=== PATIENT | female | born 1980 | race Caucasian/White ===

== ENCOUNTER 2019-09-08 21:05 | Emergency (ER) | payer SELFPAY ==
[~2019-09-08] VITALS: Ht 160 cm; Wt 157.3 kg
[2019-09-08 22:20] LABS: BASOPHILS % (AUTO) 1 % (0-10); EOSINOPHILS % (AUTO) 1 % (0-10); HEMATOCRIT 41 % (35-52); HEMOGLOBIN 13.5 G/DL (11.5-16.0); LYMPHOCYTES % (AUTO) 30 % (12-44); MEAN CORPUSCULAR HEMOGLOBIN 30 PG (25-34); MEAN CORPUSCULAR HGB CONC 33 G/DL (32-36); MEAN CORPUSCULAR VOLUME 91 FL (80-99); MONOCYTES % (AUTO) 5 % (0-12); NEUTROPHILS # (AUTO) 6.8 X 10^3 (1.8-7.8); NEUTROPHILS % (AUTO) 63 % (42-75); PLATELET COUNT 283 10^3/uL (130-400); RED CELL DISTRIBUTION WIDTH 13.7 % (10.0-14.5); WHITE BLOOD COUNT 10.7 10^3/uL (4.3-11.0)
[2019-09-08 22:21] LABS: BASOPHILS # (AUTO) 0.1 10^3/uL (0.0-0.1); EOSINOPHILS # (AUTO) 0.1 10^3/uL (0.0-0.3); LYMPHOCYTES # (AUTO) 3.2 X 10^3 (1.0-4.0); MONOCYTES # (AUTO) 0.5 X 10^3 (0.0-1.0)
[2019-09-08 22:31] LABS: INR 0.9 (0.8-1.4); PROTHROMBIN TIME PATIENT 12.9 SEC (12.2-14.7)
[2019-09-08 22:36] LABS: ALANINE AMINOTRANSFERASE 14 U/L (0-55); ALBUMIN 3.6 GM/DL (3.2-4.5); ALKALINE PHOSPHATASE 104 U/L (40-136); BILIRUBIN,TOTAL 0.2 MG/DL (0.1-1.0); BUN/CREATININE RATIO 16; CALCIUM 9.4 MG/DL (8.5-10.1); CARBON DIOXIDE 25 MMOL/L (21-32); CHLORIDE 102 MMOL/L (98-107); CREATININE SERUM 0.83 MG/DL (0.60-1.30); GFR ESTIMATED > 60; GLUCOSE 90 MG/DL (70-105); POTASSIUM 3.4 MMOL/L (3.6-5.0); SODIUM 140 MMOL/L (135-145); TOTAL PROTEIN 7.4 GM/DL (6.4-8.2)
--- NOTE | 2019-09-08 22:47 | ED GU-Female ---
General Chief Complaint: TENDERIZER TENDER Stated Complaint: ABNORMAL MENSTRAL BLEEDING Nursing Triage Note: Patient states that she has been having 2 periods a month for the last 3 months. She is currently on her period and states that she has been soaking a tampon every 2 hours and she got concerned. Patient wants to get checked out. Nursing Sepsis Screen: No Definite Risk History of Present Illness Date Seen by Provider: Sep 08, 2019 Time Seen by Provider: 21:40 Initial Comments Patient is here with 3 months of metromenorrhagia having 2 periods a month and had some heavy bleeding today nothing more unusual about this and the others she doesn't know abdominal pain she is not on any hormones at this time she doesn't have a primary care physician and just arrived in town about 2 weeks ago. Since she might be a little bit dizzy at markedly obese and little understanding about what's going on. Severity/Quality: other (no pain) Modifying Factors: Worsens With Eating, Worsens With Exercise Associated Symptoms: No abdominal pain, No dysuria, No fever/chills, No lower back pain, No nausea/vomiting Allergies and Home Medications Allergies Coded Allergies: Penicillins (Verified Allergy, Unknown, 09/08/19) aspirin (Verified Allergy, Unknown, 09/08/19) bismuth subsalicylate (Verified Allergy, Unknown, 09/08/19) codeine (Verified Allergy, Unknown, 09/08/19) tramadol (Verified Allergy, Unknown, 09/08/19) Patient Home Medication List Home Medication List Reviewed: Yes Review of Systems Review of Systems Constitutional: No chills, No fever EENTM: No nose congestion, No throat pain, No throat swelling Respiratory: No cough, No wheezing Cardiovascular: No chest pain Gastrointestinal: No abdominal pain, No diarrhea, No nausea, No vomiting Genitourinary: denies dysuria, denies frequency Musculoskeletal: No joint swelling, No muscle pain Skin: No lesions, No rash Psychiatric/Neurological: Denies Headache, Denies Numbness, Denies Tingling Past Tlecrjp-Itxnjf-Fncevo Hx Past Med/Social Hx: Reviewed Nursing Past Med/Soc Hx Patient Social History Alcohol Use: Denies Use Recreational Drug Use: No Smoking Status: Current Everyday Smoker Type Used: Cigarettes Recent Foreign Travel: No Contact w/Someone Who Travel: No Recent Infectious Disease Expo: No Physical Abuse: No Sexual Abuse: No Mistreated: No Fear: No Past Medical History Surgeries: Yes Section, Tubal Ligation Respiratory: No Cardiac: No Neurological: No Genitourinary: No Gastrointestinal: No Musculoskeletal: No Endocrine: No HEENT: No Cancer: No Psychosocial: No Integumentary: No Physical Exam Vital Signs Vital Signs - First Documented 09/08/19 21:18 Temp 36.7 Pulse 81 Resp 18 B/P (MAP) 131/66 (87) Pulse Ox 98 O2 Delivery Room Air Capillary Refill : Less Than 3 Seconds Height, Weight, BMI Height: '" Weight: lbs. oz. kg; 61.00 BMI Method: General Appearance: WD/WN, no apparent distress HEENT: normal ENT inspection, TMs normal, pharynx normal Neck: non-tender, supple, normal inspection Cardiovascular: regular rate, rhythm, no murmur Respiratory: lungs clear, normal breath sounds Gastrointestinal: normal bowel sounds, non tender, soft, no organomegaly Pelvic: other (evaluable pelvic exam was discussed at this time because of her habitus and size little or no evaluators to be gained in trying to do a pelvic exam at this time she needs a sonogram she needs hormonal workup and to be seen by a physician who can follow this up.) Extremities: normal range of motion, normal inspection 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, alert, normal mood/affect, o riented x 3 Skin: normal color, warm/dry Progress/Results/Core Measures Suspected Sepsis Recent Fever Within 48 Hours: No Infection Criteria Present: None New/Unexplained Altered Menta: No Sepsis Screen: No Definite Risk SIRS Temperature: Pulse: 81 Respiratory Rate: 18 Laboratory Tests 09/08/19 22:08: White Blood Count 10.7 Blood Pressure 131 /66 Mean: 87 Laboratory Tests 09/08/19 22:08: Creatinine 0.83, INR Comment 0.9, Platelet Count 283, Total Bilirubin 0.2 Results/Orders Lab Results Laboratory Tests Test 09/08/19 22:08 Range/Units White Blood Count 10.7 4.3-11.0 10^3/uL Red Blood Count 4.51 4.35-5.85 10^6/uL Hemoglobin 13.5 11.5-16.0 G/DL Hematocrit 41 35-52 % Mean Corpuscular Volume 91 80-99 FL Mean Corpuscular Hemoglobin 30 25-34 PG Mean Corpuscular Hemoglobin Concent 33 32-36 G/DL Red Cell Distribution Width 13.7 10.0-14.5 % Platelet Count 283 130-400 10^3/uL Mean Platelet Volume 10.0 7.4-10.4 FL Neutrophils (%) (Auto) 63 42-75 % Lymphocytes (%) (Auto) 30 12-44 % Monocytes (%) (Auto) 5 0-12 % Eosinophils (%) (Auto) 1 0-10 % Basophils (%) (Auto) 1 0-10 % Neutrophils # (Auto) 6.8 1.8-7.8 X 10^3 Lymphocytes # (Auto) 3.2 1.0-4.0 X 10^3 Monocytes # (Auto) 0.5 0.0-1.0 X 10^3 Eosinophils # (Auto) 0.1 0.0-0.3 10^3/uL Basophils # (Auto) 0.1 0.0-0.1 10^3/uL Prothrombin Time 12.9 12.2-14.7 SEC INR Comment 0.9 0.8-1.4 Activated Partial Thromboplast Time 24 24-35 SEC Sodium Level 140 135-145 MMOL/L Potassium Level 3.4 L 3.6-5.0 MMOL/L Chloride Level 102 98-107 MMOL/L Carbon Dioxide Level 25 21-32 MMOL/L Anion Gap 13 5-14 MMOL/L Blood Urea Nitrogen 13 7-18 MG/DL Creatinine 0.83 0.60-1.30 MG/DL Estimat Glomerular Filtration Rate > 60 BUN/Creatinine Ratio 16 Glucose Level 90 70-105 MG/DL Calcium Level 9.4 8.5-10.1 MG/DL Corrected Calcium 9.7 8.5-10.1 MG/DL Total Bilirubin 0.2 0.1-1.0 MG/DL Aspartate Amino Transf (AST/SGOT) 14 5-34 U/L Alanine Aminotransferase (ALT/SGPT) 14 0-55 U/L Alkaline Phosphatase 104 40-136 U/L Total Protein 7.4 6.4-8.2 GM/DL Albumin 3.6 3.2-4.5 GM/DL My Orders Orders - PHAN VERDIN JR, MD Cbc With Automated Diff (09/08/19 21:37) Comprehensive Metabolic Panel (09/08/19 21:37) Protime With Inr (09/08/19 21:37) Partial Thromboplastin Time (09/08/19 21:37) Urine Bedside (09/08/19 21:47) Vital Signs/I&O 09/08/19 21:18 Temp 36.7 Pulse 81 Resp 18 B/P (MAP) 131/66 (87) Pulse Ox 98 O2 Delivery Room Air Capillary Refill : Less Than 3 Seconds Blood Pressure Mean: 87 Progress Note : Time: 22:46 Progress Note At this juncture like is minimal menorrhagia secondary to obesity and hypoestrogenism we'll give her Provera for 5 days to see if we can unload her uterus in that time will follow up with primary care physician for further evaluation including hormonal testing and ultrasound discussed with her options at this time and the fact that she will have heavy bleeding following the progesterone. Departure Impression Primary Impression: Menorrhagia Qualified Codes: N92.1 - Excessive and frequent menstruation with irregular cycle Disposition: HOME, SELF-CARE Condition: Stable Departure-Patient Inst. Referrals: NO,LOCAL PHYSICIAN (PCP/Family) Primary Care Physician Patient Instructions: Heavy Periods (DC) Scripts Medroxyprogesterone Acetate (Provera) 10 Mg Tablet 10 MG PO DAILY for 5 Days, #5 TAB Prov: PHAN VERDIN JR, MD 09/08/19 PHAN VERDIN JR, MD Sep 08, 2019 22:47
[2019-09-08] MEDS ORDERED: MEDR10TA PO (22:48)
[2019-09-08 22:58] VITALS: BP 117/73
== END 2019-09-08 22:57 | disposition home or self-care (01) ==
LOC: ER FS 21:08
DX: N92.1 Excessive and frequent menstruation with irregular cycle (principal); Z88.0 Allergy status to penicillin; Z88.5 Allergy status to narcotic agent; Z88.8 Allergy status to other drugs, medicaments and biological substances; F17.210 Nicotine dependence, cigarettes, uncomplicated; E66.9 Obesity, unspecified
CPT/HCPCS: 36415; 80053; 84703; 85025; 85610; 85730; 99282

== ENCOUNTER 2019-09-16 17:24 | Emergency (ER) | payer SELFPAY ==
[~2019-09-16] VITALS: Ht 157.8 cm; Wt 152.0 kg
[~2019-09-16 17:24] MED LIST: MEDR10TA PO
--- NOTE | 2019-09-16 17:33 | ED General ---
General Stated Complaint: FINGER PAIN/SWELLING Source of Information: Patient, RN Notes Reviewed History of Present Illness Date Seen by Provider: Sep 16, 2019 Time Seen by Provider: 17:31 Initial Comments This patient is a 38-year-old female presents to the emergency department complaining of swelling to her proximal ring finger. Patient states she's been moving furniture all day and noticed little bit of tenderness to her left ring finger proximal and some mild swelling. Does not she caught her finger on something or anything. We'll do medical evaluation treatment is needed. Allergies and Home Medications Allergies Coded Allergies: Penicillins (Verified Allergy, Unknown, 09/08/19) aspirin (Verified Allergy, Unknown, 09/08/19) bismuth subsalicylate (Verified Allergy, Unknown, 09/08/19) codeine (Verified Allergy, Unknown, 09/08/19) tramadol (Verified Allergy, Unknown, 09/08/19) Home Medications Medroxyprogesterone Acetate 10 Mg Tablet, 10 MG PO DAILY Prescribed by: PHAN VERDIN on 09/08/19 [id number] Patient Home Medication List Home Medication List Reviewed: Yes Review of Systems Review of Systems Constitutional: see HPI EENTM: No see HPI, No no symptoms reported, No ear discharge, No hearing loss, No ear pain, No blurred vision, No double vision, No eye pain, No tearing, No vision loss, No dental problems, No hoarseness, No mouth pain, No mouth swelling, No epistaxis, No nose congestion, No nose pain, No throat pain, No throat swelling, No other Respiratory: No no symptoms reported, No see HPI, No cough, No dyspnea on exe rtion, No hemoptysis, No orthopnea, No phlegm, No short of breath, No stridor, No wheezing, No other Cardiovascular: No no symptoms reported, No see HPI, No chest pain, No edema, No Hx of Intervention, No palpitations, No syncope, No vascular heart diseas, No other Gastrointestinal: No RUQ, No LUQ, No RLQ, No LLQ, No no symptoms reported, No see HPI, No abdominal pain, No constipation, No diarrhea, No dysphagia, No hematemesis, No heartburn, No jaundice, No loss of appetite, No melena, No nausea, No vomiting, No other Musculoskeletal: No no symptoms reported, No see HPI, No back pain, No gout, No joint pain, No joint swelling, No muscle pain, No muscle stiffness, No muscle cramps, No muscle twitching, No muscle weakness, No neck pain, No other Skin: No no symptoms reported; see HPI; No change in color, No change in hair/nails, No dryness, No hx of skin cancer, No lesions, No lumps, No pruritus, No rash, No other Past Njhbyht-Lrdpdv-Gzbjei Hx Patient Social History Type Used: Cigarettes Recent Foreign Travel: No Contact w/Someone Who Travel: No Past Medical History Surgeries: Yes Section, Tubal Ligation Respiratory: No Cardiac: No Neurological: No Genitourinary: No Gastrointestinal: No Musculoskeletal: No Endocrine: No HEENT: No Cancer: No Psychosocial: No Integumentary: No Physical Exam Vital Signs Capillary Refill : Height, Weight, BMI Height: '" Weight: lbs. oz. kg; 61.00 BMI Method: General Appearance: No Apparent Distress, WD/WN Respiratory: Chest Non Tender, Lungs Clear, Normal Breath Sounds, No Accessory Muscle Use, No Respiratory Distress Cardiovascular: Regular Rate, Rhythm, No Edema, No Gallop, No JVD, No Murmur, Normal Peripheral Pulses Gastrointestinal: Normal Bowel Sounds, No Organomegaly, No Pulsatile Mass, Non Tender, Soft Extremity: Normal Capillary Refill, Normal Inspection, Normal Range of Motion, Non Tender, No Calf Tenderness, No Pedal Edema Skin: Normal Color, Warm/Dry, Other (minor swelling proximal to the left fourth digit. No obvious signs of trauma for range of motion intact sensation intact.) Progress/Results/Core Measures Suspected Sepsis SIRS Temperature: Pulse: Respiratory Rate: Blood Pressure / Mean: Results/Orders Vital Signs/I&O Capillary Refill : Progress Note : Time: 17:32 Progress Note No obvious signs of trauma. Patient has full range of motion. Patient given reassurance. Patient is use ice as needed. Tylenol Motrin as needed for pain. Rest hand. Monitor closely and follow up with PCP in 2-3 days. Departure Impression Primary Impression: Finger swelling Disposition: 01 HOME, SELF-CARE Condition: Stable Departure-Patient Inst. Decision time for Depature: 17:33 Referrals: NO,LOCAL PHYSICIAN (PCP) Primary Care Physician Patient Instructions: Swelling Add. Discharge Instructions: Patient is use ice as needed. Tylenol Motrin as needed for pain. Rest hand. Monitor closely and follow up with PCP in 2-3 days. CASSIE SINGH MD Sep 16, 2019 17:33
[2019-09-16 17:44] VITALS: BP 151/93
--- OUTSIDE RECORDS SUMMARY | 2019-09-16 21:57 | XMS REPORT | Continuity of Care Document ---
Author Organization Unknown Address Unknown Phone Unavailable Allergies Active Description Code Type Severity Reaction Onset Reported/Identified Relationship to Patient Clinical Status Yes aspirin [id number] Drug Allergy Unknown N/A 09/08/2019 Yes bismuth subsalicylate [id number] Drug Allergy Unknown N/A 09/08/2019 Yes codeine [id number] Drug Allergy Unknown N/A 09/08/2019 Yes Penicillins [id number] Drug Aller gy Unknown N/A 09/08/2019 Yes tramadol [id number] Drug Allergy Unknown N/A 09/08/2019 Medications There is no data. Problems Date Dx Coded Attending Type Code Diagnosis Diagnosed By 09/09/2019 PHAN VERDIN MD Ot E66.9 OBESITY, UNSPECIFIED 09/09/2019 PHAN VERDIN MD Ot F17.210 NICOTINE DEPENDENCE, CIGARETTES, UNCOMPL 09/09/2019 PHAN VERDIN MD Ot N92.1 EXCESSIVE AND FREQUENT MENSTRUATION WITH 09/09/2019 PHAN VERDIN MD Ot Z88.0 ALLERGY STATUS TO PENICILLIN 09/09/2019 PHAN VERDIN MD Ot Z88.5 ALLERGY STATUS TO NARCOTIC AGENT STATUS 09/09/2019 PHAN VERDIN MD Ot Z88.8 ALLERGY STATUS TO OTH DRUG/MEDS/BIOL SUB Procedures There is no data. Results Test Result Range Complete blood count (CBC) with automate d white blood cell (WBC) differential - 09/08/19 22:08 Blood leukocytes automated count (number/volume) 10.7 10*3/uL 4.3-11.0 Blood erythrocytes automated count (number/volume) 4.51 10*6/uL 4.35-5.85 Venous blood hemoglobin measurement (mass/volume) 13.5 g/dL 11.5-16.0 Blood hematocrit (volume fraction) 41 % 35-52 Automated erythrocyte mean corpuscular volume 91 [ foz_us] 80-99 Automated erythrocyte mean corpuscular h emoglobin (mass per erythrocyte) 30 pg 25-34 Automated erythrocyte mean corpuscular h emoglobin concentration measurement (mass/volume) 33 g/dL 32-36 Automated erythrocyte distribution width ratio 13. 7 % 10.0- 14.5 Automated blood platelet count (count/volume) 283 10*3/uL 130-400 Automated blood platelet mean volume measurement 10.0 [foz_us] 7.4-10.4 Automated blood neutrophils/100 leukocytes 63 % 42-75 Automated blood lymphocytes/100 leukocytes 30 % 12-44 Blood monocytes/100 leukocytes 5 % 0-12 Automated blood eosinophils/100 leukocytes 1 % 0-10 Automated blood basophils/100 leukocytes 1 % 0-10 Blood neutrophils automated count (number/volume) 6.8 10*3 1.8-7.8 Blood lymphocytes automated count (number/volume) 3.2 10*3 1.0-4.0 Blood monocytes automated count (number/volume) 0. 5 10*3 0.0-1.0 Automated eosinophil count 0.1 10*3/uL 0 .0-0.3 Automated blood basophil count (count/volume) 0.1 10*3/uL 0.0-0.1 PT panel in platelet poor plasma by coag ulation assay - 09/08/19 22:08 Prothrombin time (PT) in platelet poor plasma by coagu lation assay 12.9 s 12.2-14.7 INR in platelet poor plasma or blood by coagulation as say 0.9 0.8-1.4 Activated partial thromboplastin time (a PTT) in platelet poor plasma bycoagulation assay - 09/08/19 22:08 Activated partial thromboplastin time (a PTT) in platelet poor plasma bycoagulation assay 24 s 24-35 Comprehensive metabolic panel - 09/08/19 22:08 Serum or plasma sodium measurement (moles/volume) 140 mmol/L 135-145 Serum or plasma potassium measurement (moles/volume) 3.4 mmol/L 3.6-5.0 Serum or plasma chloride measurement (moles/volume) 102 mmol/L 98-107 Carbon dioxide 25 mmol/L 21-32 Serum or plasma anion gap determination (moles/volume) 13 mmol/L 5-14 Serum or plasma urea nitrogen measurement (mass/volume ) 13 mg/dL 7-18 Serum or plasma creatinine measurement (mass/volume) 0.83 mg/dL 0.60-1.30 Serum or plasma urea nitrogen/creatinine mass ratio 16 NRG Serum or plasma creatinine measurement w ith calculation of estimated glomerular filtration rate > NRG Serum or plasma glucose measurement (mass/volume) 90 mg/dL 70-105 Serum or plasma calcium measurement (mass/volume) 9.4 mg/dL 8.5-10.1 Serum or plasma total bilirubin measurement (mass/volu me) 0.2 mg/dL 0.1-1.0 Serum or plasma alkaline phosphatase amando surement (enzymatic activity/volume) 104 U/L 40-136 Serum or plasma aspartate aminotransfera se measurement (enzymatic activity/volume) 14 U/L 5-34 Serum or plasma alanine aminotransferase measurement (enzymatic activity/volume) 14 U/L 0-55 Serum or plasma protein measurement (mass/volume) 7.4 g/dL 6.4-8.2 Serum or plasma albumin measurement (mass/volume) 3.6 g/dL 3.2-4.5 CALCIUM CORRECTED 9.7 mg/dL 8.5-10.1 Encounters ACCT No. Visit Date/Time Discharge Status Pt. Type Provider Facility Loc./Unit Complaint [id number] 09/08/2019 21:08:00 020 22:57:00 DIS Outpatient LAMBERT GAMBOA, PHAN Joiner [facility] ER FS ABNORMAL MENSTRAL BLEE DONTA
== END 2019-09-16 17:44 | disposition home or self-care (01) ==
LOC: EDUNIT# 17:24 → ER FS 17:25
DX: M79.89 Other specified soft tissue disorders (principal); Z88.0 Allergy status to penicillin; Z88.6 Allergy status to analgesic agent; Z88.5 Allergy status to narcotic agent; Z88.8 Allergy status to other drugs, medicaments and biological substances
CPT/HCPCS: 99282

== ENCOUNTER 2019-12-03 19:15 | Emergency (ER) | payer SELFPAY ==
[~2019-12-03] VITALS: Ht 160 cm; Wt 158.0 kg
--- OUTSIDE RECORDS SUMMARY | 2019-12-03 19:21 | XMS REPORT | Continuity of Care Document ---
Author Organization Unknown Address Unknown Phone Unavailable Allergies Active Description Code Type Severity Reaction Onset Reported/Identified Relationship to Patient Clinical Status Yes aspirin [id number] Drug Allergy Unknown N/A 09/08/2019 Yes bismuth subsalicylate [id number] Drug Allergy Unknown N/A 09/08/2019 Yes codeine [id number] Drug Allergy Unknown N/A 09/08/2019 Yes Penicillins [id number] Drug Aller gy Unknown N/A 09/08/2019 Yes tramadol [id number] Drug Allergy Unknown N/A 09/08/2019 Medications There is no data. Problems Date Dx Coded Attending Type Code Diagnosis Diagnosed By 09/09/2019 PHAN VERDIN MD, Ot E66.9 OBESITY, UNSPECIFIED 09/09/2019 PHAN VERDIN MD Ot F17.210 NICOTINE DEPENDENCE, CIGARETTES, UNCOMPL 09/09/2019 PHAN EVRDIN MD Ot N92.1 EXCESSIVE AND FREQUENT MENSTRUATION WITH 09/09/2019 PHAN VERDIN MD, Ot Z88.0 ALLERGY STATUS TO PENICILLIN 09/09/2019 PHAN VERDIN MD Ot Z88.5 ALLERGY STATUS TO NARCOTIC AGENT STATUS 09/09/2019 PHAN VERDIN MD Ot Z88.8 ALLERGY STATUS TO OTH DRUG/MEDS/BIOL SUB 09/18/2019 CASSIE SINGH MD Ot M79.89 OTHER SPECIFIED SOFT TISSUE DISORDERS 09/18/2019 CASSIE SINGH MD Ot Z88.0 ALLERGY STATUS TO PENICILLIN 09/18/2019 CASSIE SINGH MD Ot Z88.5 ALLERGY STATUS TO NARCOTIC AGENT STATUS 09/18/2019 CASSIE SINGH MD Ot Z88.6 ALLERGY STATUS TO ANALGESIC AGENT STATUS 09/18/2019 CASSIE SINGH MD Ot Z88.8 ALLERGY STATUS TO OTH [...] Status Pt. Type Provider Facility Loc./Unit Complaint [id number] 09/16/2019 17:25:00 17:44:00 DIS Outpatient FRANCISCO GAMBOA, CASSIE Guidry [facility] ER FS FINGER PAIN/SWELLING [id number] 09/08/2019 21:08:00 22:57:00 DIS Outpatient LAMBERT GAMBOA, PHAN Joiner [facility] ER FS ABNORMAL MENSTRAL BLEE DONTA
--- NOTE | 2019-12-03 19:37 | ED General ---
General Stated Complaint: LOWER BACK PAIN Source of Information: Patient History of Present Illness Date Seen by Provider: Dec 03, 2019 Time Seen by Provider: 19:37 Initial Comments 39-year-old female presents with right middle lower back pain. Patient reports that she bent over to set up a heavy item that had foot fallen. Reports that she "felt a pop" in her back. It is not in the midline. She denies any numbness tingling bowel or bladder issues. She denies any decreased ability to ambulate. She does have pain with movement.. Allergies and Home Medications Allergies Coded Allergies: Penicillins (Verified Allergy, Unknown, 09/08/19) aspirin (Verified Allergy, Unknown, 09/08/19) bismuth subsalicylate (Verified Allergy, Unknown, 09/08/19) codeine (Verified Allergy, Unknown, 09/08/19) tramadol (Verified Allergy, Unknown, 09/08/19) Home Medications Cyclobenzaprine HCl 10 Mg Tablet, 10 MG PO Q8H PRN for SPASMS Prescribed by: ANN GONCALVES on 12/03/192015 Medroxyprogesterone Acetate 10 Mg Tablet, 10 MG PO DAILY Prescribed by: PHAN VERDIN on 09/08/198 Naproxen 500 Mg Tablet, 500 MG PO BID Prescribed by: ANN GONCALVES on 12/03/192015 Patient Home Medication List Home Medication List Reviewed: Yes Review of Systems Review of Systems Constitutional: No chills, No fever EENTM: no symptoms reported Respiratory: no symptoms reported Cardiovascular: no symptoms reported Gastrointestinal: no symptoms reported Genitourinary: no symptoms reported Musculoskeletal: see HPI, back pain Skin: no symptoms reported Psychiatric/Neurological: No Symptoms Reported Past Hxtpbft-Nijzlc-Rptfen Hx Past Med/Social Hx: Reviewed Nursing Past Med/Soc Hx Patient Social History Type Used: Cigarettes Recent Foreign Travel: No Contact w/Someone Who Travel: No Recent Hopitalizations: No Seasonal Allergies Seasonal Allergies: No Past Medical History Surgeries: Yes Section, Tubal Ligation Respiratory: No Cardiac: No Neurological: No Genitourinary: No Gastrointestinal: No Musculoskeletal: No Endocrine: No HEENT: No Cancer: No Psychosocial: No Integumentary: No Blood Disorders: No Adverse Reaction/Blood Tranf: No Physical Exam Vital Signs Vital Signs - First Documented 12/03/19 19:49 Temp 36.6 Pulse 86 Resp 16 B/P (MAP) 131/87 (102) O2 Delivery Room Air Capillary Refill : Height, Weight, BMI Height: '" Weight: lbs. oz. kg; 61.00 BMI Method: General Appearance: No Apparent Distress, Obese (morbid) Eyes: Bilateral Eye Normal Inspection Neck: Full Range of Motion, Normal Inspection Respiratory: Lungs Clear, Normal Breath Sounds Cardiovascular: Regular Rate, Rhythm Back: No Vertebral Tenderness; No Vertebral Tenderness; Other (mild tenderness low right paraspinal and upper hip) Extremity: Normal Capillary Refill Neurologic/Psychiatric: Alert, Oriented x3, No Motor/Sensory Deficits, Normal Mood/Affect, talent partner II-XII Norm as Tested Reflexes: 2+ Knee (R), 2+ Knee (L) Skin: Normal Color, Warm/Dry Progress/Results/Core Measures Suspected Sepsis SIRS Temperature: Pulse: Respiratory Rate: Blood Pressure / Mean: Results/Orders My Orders Orders - GONCALVES,ANN L DO Orphenadrine Inj (Ed Only) (Norflex Inje (12/03/19 19:49) Ketorolac Injection (Toradol Injection) (12/03/19 19:49) Lumbar Spine 2 Or 3 View (12/03/19 19:49) Vital Signs/I&O 12/03/19 19:49 Temp 36.6 Pulse 86 Resp 16 B/P (MAP) 131/87 (102) O2 Delivery Room Air Capillary Refill : Progress Note : Time: 20:45 Progress Note Patient with no physical findings of any significant abnormality or injury. Patient is ambulating and moving without difficulty. Patient will be discharged home in stable condition. Diagnostic Imaging Diagonstic Imaging: Xray Plain Films/CT/US/NM/MRI: other Comments No acute fracture or findings Reviewed: Reviewed by Me Departure Impression Primary Impression: Strain of tendon of back Qualified Codes: S39.012A - Strain of muscle, fascia and tendon of lower back, initial encounter Additional Impression: Lumbar sprain Qualified Codes: S33.5XXA - Sprain of ligaments of lumbar spine, initial encounter Disposition: 01 HOME, SELF-CARE Condition: Stable Departure-Patient Inst. Referrals: NO,LOCAL PHYSICIAN (PCP/Family) Primary Care Physician Patient Instructions: Lumbar Muscle Strain (DC), Back Stretches on Floor, Back Muscle Strain, Back Flexion Stretching Exercises Add. Discharge Instructions: Follow-up with your primary care provider in 4-5 days if symptoms are not improving Scripts Naproxen (Naprosyn) 500 Mg Tablet 500 MG PO BID, #30 TAB 0 Refills Prov: ANN GONCALVES DO 12/03/19 Cyclobenzaprine HCl (Cyclobenzaprine HCl) 10 Mg Tablet 10 MG PO Q8H PRN for SPASMS, #15 TAB 0 Refills Prov: ANN GONCALVES DO 12/03/19 ANN GONCALVES DO Dec 03, 2019 19:37
[2019-12-03] MEDS ORDERED: ORPHENADRINE 60 MG/2 ML (NORFLEX) AMP (ED ONLY) IM STA (19:49)
[2019-12-03] MEDS ORDERED: KETOROLAC 60 MG/2 ML VIAL IM STA (19:49)
[2019-12-03] MEDS ORDERED: NAPR-1071 PO (20:16)
[2019-12-03] MEDS ORDERED: CYCL10TA9 PO (20:16)
--- NOTE | 2019-12-03 20:46 | Diagnostic Imaging Report ---
INDICATION: Low back pain EXAMINATION: Lumbar spine dated 12/03/2019 FINDINGS: 3 views of the lumbar spine Questionable pars defects at L5 with no subluxations. Vertebral body heights maintained. Intervertebral disc spaces well preserved. IMPRESSION: 1. Questionable pars defects at L5 without subluxation. Dictated by: Dictated on workstation # [id number]
[2019-12-03 20:54] VITALS: BP 127/77
== END 2019-12-03 20:54 | disposition home or self-care (01) ==
LOC: EDUNIT# 19:15 → ER FS 19:17
DX: S39.012A Strain of muscle, fascia and tendon of lower back, initial encounter (principal); S33.5XXA Sprain of ligaments of lumbar spine, initial encounter; Z88.0 Allergy status to penicillin; Z88.6 Allergy status to analgesic agent; Z88.5 Allergy status to narcotic agent; Z88.8 Allergy status to other drugs, medicaments and biological substances; X50.1XXA Overexertion from prolonged static or awkward postures, initial encounter
CPT/HCPCS: 72100

== ENCOUNTER 2020-01-15 10:53 | Emergency (ER) | payer SELFPAY ==
[~2020-01-15] VITALS: Ht 157.4 cm; Wt 158.0 kg
[~2020-01-15 10:53] MED LIST changes: +CYCL10TA9 PO; +NAPR-1071 PO
[2020-01-15 10:56] VITALS: BP 119/79
[2020-01-15 11:23] LABS: CLARITY,URINE SL CLOUDY; COLOR,URINE ORANGE; GLUCOSE, URINE (UA) TRACE (NEGATIVE); PH,URINE 5.5 (5-9); PROTEIN,URINE 1+ (NEGATIVE)
[2020-01-15 11:24] LABS: BACTERIA,URINE LARGE /HPF; BILIRUBIN,URINE NEGATIVE (NEGATIVE); KETONES,URINE NEGATIVE (NEGATIVE); LEUKOCYTE ESTERASE ,URINE NEGATIVE (NEGATIVE); NITRITE,URINE POSITIVE (NEGATIVE); RBC,URINE 0-2 /HPF; WBC,URINE 0-2 /HPF
[2020-01-15] MEDS ORDERED: FLUC100T PO (11:33)
[2020-01-15] MEDS ORDERED: SULF1TAB35 PO (11:33)
--- NOTE | 2020-01-15 11:40 | ED GU-Female ---
General Chief Complaint: - Urinary Stated Complaint: URINARY PAIN Nursing Triage Note: Patient presents to the ED with c/o burning with urination, frequency, and bladder pain. She states that her symptoms started 2 days ago and she began taking AZO yesterday evening and has had no relief. Nursing Sepsis Screen: No Definite Risk Source: patient Exam Limitations: no limitations History of Present Illness Date Seen by Provider: Jan 15, 2020 Time Seen by Provider: 11:36 Initial Comments Patient is a 39-year-old female presents with urinary frequency urgency and dysuria for the past several days. No vaginal discharge or. Patient denies fever chills, nausea vomiting and flank pain. No history of kidney stones. Previous tubal ligation. No other acute symptoms or complaints. Last menstrual period was 20 days ago. Timing/Duration: week, getting worse Severity/Quality: moderate, burning, cramping, dull Location: suprapubic Radiation: none Activities at Onset: none Prior Genitourinary Problems: similar symptoms Associated Symptoms: denies symptoms Allergies and Home Medications Allergies Coded Allergies: Penicillins (Verified Allergy, Unknown, 09/08/19) aspirin (Verified Allergy, Unknown, 09/08/19) bismuth subsalicylate (Verified Allergy, Unknown, 09/08/19) codeine (Verified Allergy, Unknown, 09/08/19) tramadol (Verified Allergy, Unknown, 09/08/19) Home Medications Cyclobenzaprine HCl 10 Mg Tablet, 10 MG PO Q8H PRN for SPASMS Prescribed by: ANN GONCALVES on 12/03/192015 Fluconazole 100 Mg Tablet, 100 MG PO DAILY PRN Prescribed by: TREVOR LUBIN on 01/15/20 1133 Medroxyprogesterone Acetate 10 Mg Tablet, 10 MG PO DAILY Prescribed by: PHAN VERDIN on 09/08/19 6738 Naproxen 500 Mg Tablet, 500 MG PO BID Prescribed by: ANN GONCALVES on 12/03/19 2016 Sulfamethoxazole/Trimethoprim 1 Each Tablet, 1 EACH PO BID Prescribed by: TREVOR LUBIN on 01/15/20 1133 Patient Home Medication List Home Medication List Reviewed: Yes Review of Systems Review of Systems Constitutional: see HPI EENTM: see HPI Cardiovascular: see HPI Gastrointestinal: no symptoms reported Genitourinary: see HPI Musculoskeletal: see HPI Skin: see HPI Psychiatric/Neurological: See HPI Endocrine: See HPI Hematologic/Lymphatic: See HPI Past Avhtocr-Lutmqu-Eannqn Hx Past Med/Social Hx: Reviewed Nursing Past Med/Soc Hx Patient Social History Alcohol Use: Denies Use Recreational Drug Use: No Smoking Status: Current Everyday Smoker Type Used: Cigarettes 2nd Hand Smoke Exposure: No Recent Foreign Travel: No Contact w/Someone Who Travel: No Recent Infectious Disease Expo: No Recent Hopitalizations: No Physical Abuse: No Sexual Abuse: No Mistreated: No Fear: No Seasonal Allergies Seasonal Allergies: No Past Medical History Surgeries: Yes Section, Tubal Ligation Respiratory: No Cardiac: No Neurological: No Genitourinary: No Gastrointestinal: No Musculoskeletal: No Endocrine: Yes Hypothyroidsim HEENT: No Cancer: No Psychosocial: Yes Anxiety, Depression Integumentary: No Blood Disorders: No Adverse Reaction/Blood Tranf: No Physical Exam Vital Signs Vital Signs - First Documented 01/15/20 10:56 Temp 35.8 Pulse 77 Resp 18 B/P (MAP) 119/79 (92) Pulse Ox 98 O2 Delivery Room Air Capillary Refill : Less Than 3 Seconds Height, Weight, BMI Height: '" Weight: lbs. oz. kg; 63.00 BMI Method: General Appearance: WD/WN, no apparent distress HEENT: PERRL/EOMI Neck: full range of motion Respiratory: lungs clear, normal breath sounds Back: no CVA tenderness Focused Exam Sepsis Stage: Ruled Out Progress/Results/Core Measures Suspected Sepsis Recent Fever Within 48 Hours: No Infection Criteria Present: Suspected New Infection New/Unexplained Altered Menta: No Sepsis Screen: No Definite Risk SIRS Temperature: Pulse: 77 Respiratory Rate: 18 Blood Pressure 119 /79 Mean: 92 Results/Orders Lab Results Laboratory Tests Test 01/15/20 10:56 Range/Units Urine Color ORANGE Urine Clarity SL CLOUDY Urine pH 5.5 5-9 Urine Specific [place] >=1.030 1.016-1.022 Urine Protein 1+ H NEGATIVE Urine Glucose (UA) TRACE NEGATIVE Urine Ketones NEGATIVE NEGATIVE Urine Nitrite POSITIVE H NEGATIVE Urine Bilirubin NEGATIVE NEGATIVE Urine Urobilinogen 2.0 < = 1.0 MG/DL Urine Leukocyte Esterase NEGATIVE NEGATIVE Urine RBC (Auto) 2+ H NEGATIVE Urine RBC 0-2 /HPF Urine WBC 0-2 /HPF Urine Squamous Epithelial Cells 10-25 H /HPF Urine Crystals NONE /LPF Urine Bacteria LARGE H /HPF Urine Casts NONE /LPF Urine Mucus MODERATE H /LPF Urine Culture Indicated YES My Orders Orders - TREVOR LUBIN DO Ua Culture If Indicated (01/15/20 11:07) Urine Culture (01/15/20 10:56) Vital Signs/I&O 01/15/20 10:56 Temp 35.8 Pulse 77 Resp 18 B/P (MAP) 119/79 (92) Pulse Ox 98 O2 Delivery Room Air Capillary Refill : Less Than 3 Seconds Blood Pressure Mean: 92 Departure Communication (Admissions) Minimally symptomatic. Symptoms improved with treatment. Impression Primary Impression: Urinary tract infection Disposition: HOME, SELF-CARE Condition: Stable Departure-Patient Inst. Patient Instructions: Urinary Tract Infection, Adult (DC) Add. Discharge Instructions: Please increase fluid intake and take medications as directed. Follow up with your PCP in the next 5-7 days. Return to the ED if new or worsening symptoms. All discharge instructions reviewed with patient and/or family. Voiced understanding. Scripts Fluconazole (Diflucan) 100 Mg Tablet 100 MG PO DAILY PRN, #2 TAB Prov: TREVOR LUBIN DO 01/15/20 Sulfamethoxazole/Trimethoprim (Bactrim Ds Tablet) 1 Each Tablet 1 EACH PO BID, #14 TAB Prov: TREVOR LUBIN DO 01/15/20 TREVOR LUBIN DO Jan 15, 2020 11:40
--- OUTSIDE RECORDS SUMMARY | 2020-01-15 17:50 | XMS REPORT | Continuity of Care Document ---
Author Organization Unknown Address Unknown Phone Unavailable Allergies Active Description Code Type Severity Reaction Onset Reported/Identified Relationship to Patient Clinical Status Yes aspirin [id number] Drug Allergy Unknown N/A 09/08/2019 Yes bismuth subsalicylate [id number] Drug Allergy Unknown N/A 09/08/2019 Yes codeine [id number] Drug Allergy Unknown N/A 09/08/2019 Yes Penicillins [id number] Drug Aller gy Unknown N/A 09/08/2019 Yes tramadol [id number] Drug Allergy Unknown N/A 09/08/2019 Medications There [...] Z88.8 ALLERGY STATUS TO OTH DRUG/MEDS/BIOL SUB 12/05/2019 GONCALVES DO, ANN L Ot M54.5 LOW BACK PAIN 12/05/2019 GONCALVES DO, ANN L Ot S33.5XXA SPRAIN OF LIGAMENTS OF LUMBAR SPINE, INI 12/05/2019 GONCALVES DO, ANN L Ot S39.012A STRAIN OF MUSCLE, FASCIA AND TENDON OF L 12/05/2019 GONCALVES DO, ANN L Ot X50.1XXA OVEREXERTION FROM PROLONGED STATIC OR AW 12/05/2019 GONCALVES DO, ANN L Ot Z88.0 ALLERGY STATUS TO PENICILLIN 12/05/2019 GONCALVES DO, ANN L Ot Z88.5 ALLERGY STATUS TO NARCOTIC AGENT STATUS 12/05/2019 GONCALVES DO, ANN L Ot Z88.6 ALLERGY STATUS TO ANALGESIC AGENT STATUS 12/05/2019 GONCALVES DO, ANN L Ot Z88.8 ALLERGY STATUS TO OTH DRUG/MEDS/BIOL SUB 12/09/2019 GONCALVES DO, ANN L Ot M54.5 LOW BACK PAIN 12/09/2019 GONCALVES DO, ANN L Ot S33.5XXA SPRAIN OF LIGAMENTS OF LUMBAR SPINE, INI 12/09/2019 GONCALVES DO, ANN L Ot S39.012A STRAIN OF MUSCLE, FASCIA AND TENDON OF L 12/09/2019 GONCALVES DO, ANN L Ot X50.1XXA OVEREXERTION FROM PROLONGED STATIC OR AW 12/09/2019 GONCALVES DO, ANN L Ot Z88.0 ALLERGY STATUS TO PENICILLIN 12/09/2019 GONCALVES DO, ANN L Ot Z88.5 ALLERGY STATUS TO NARCOTIC AGENT STATUS 12/09/2019 GONCALVES DO, ANN L Ot Z88.6 ALLERGY STATUS TO ANALGESIC AGENT STATUS 12/09/2019 GONCALVES DO, ANN L Ot Z88.8 ALLERGY STATUS TO OTH DRUG/MEDS/BIOL [...] g/dL 3.2-4.5 CALCIUM CORRECTED 9.7 mg/dL 8.5-10.1 SUREPATH PAP AND HPV mRNA E6/E7 - 12:00 CLINICAL INFORMATION: NR LMP: NRG PREV. PAP: NRG PREV. BX: NRG SOURCE: NR STATEMENT OF ADEQUACY: NR INTERPRETATION/RESULT: [facility] VP PLATFORMS: NR HPV mRNA E6/E7, SUREPATH VIAL Not Detected NOT DETECTED INFECTION: NR COMMENT NR Complete urinalysis with reflex to cultu re - 01/15/20 10:56 Urine color determination ORANGE NRG Urine clarity determination SL CLOUDY N RG Urine pH measurement by test strip 5.5 5-9 Specific gravity of urine by test strip >= 1.016-1.022 Urine protein assay by test strip, semi-quantitative 1+ NEGATIVE Urine glucose detection by automated test strip TR JUAN NEGATIVE Erythrocytes detection in urine sediment by light micr oscopy 2+ NEGATIVE Urine ketones detection by automated test strip NE GATIVE NEGATIVE Urine nitrite detection by test strip POSITIVE NEGATIVE Urine total bilirubin detection by test strip NEGA TIVE NEGATIVE Urine urobilinogen measurement by automated test strip (mass/volume) 2.0 mg/dL < = 1.0 Urine leukocyte esterase detection by dipstick NEG ATIVE NEGATIVE Automated urine sediment erythrocyte cou nt by microscopy (number/high power field) [HPF] NR Automated urine sediment leukocyte count by microscopy (number/high power field) [HPF] NRG Bacteria detection in urine sediment by light microsco py LARGE NRG Squamous epithelial cells detection in u rine sediment by light microscopy 10-25 NRG Crystals detection in urine sediment by light microsco py NONE NRG Casts detection in urine sediment by light microscopy NONE NRG Mucus detection in urine sediment by light microscopy MODERATE NRG Complete urinalysis with reflex to culture YES NRG Encounters ACCT No. Visit Date/Time Discharge Status Pt. Type Provider Facility Loc./Unit Complaint [id number] 12/15/2019 13:40:00 12/15/2019 23:59: 59 CLS Outpatient LEO JOSE [facility] [id number] 12/11/2019 10:40:00 Document Registration [id number] 12/03/2019 19:17:00 20:54:00 DIS Outpatient ANN GONCALVES DO [facility] ER FS LOWER BACK PAIN [id number] 09/16/2019 17:25:00 17:44:00 DIS Outpatient CASSIE SINGH MD [facility] ER FS FINGER PAIN/SWELLING [id number] 09/08/2019 21:08:00 22:57:00 DIS Outpatient PHAN VERDIN MD [facility] ER FS ABNORMAL MENSTRAL BLEE DING [id number] 01/15/2020 11:25:00 Document Registration
== END 2020-01-15 11:38 | disposition home or self-care (01) ==
LOC: EDUNIT# 10:53 → ER FS 10:55
DX: N39.0 Urinary tract infection, site not specified (principal); F17.210 Nicotine dependence, cigarettes, uncomplicated; Z88.0 Allergy status to penicillin; Z88.5 Allergy status to narcotic agent; Z88.6 Allergy status to analgesic agent; Z88.8 Allergy status to other drugs, medicaments and biological substances; Z98.51 Tubal ligation status
CPT/HCPCS: 81000; 87077; 87088; 87186; 99282

== ENCOUNTER 2020-02-29 16:39 | Emergency (ER) | payer MEDICAID, OTHER ==
[~2020-02-29] VITALS: Ht 160 cm; Wt 157.5 kg
[~2020-02-29 16:39] MED LIST changes: +FLUC100T PO; +SULF1TAB35 PO
[2020-02-29] MEDS ORDERED: NS IV 1000 ML 1,000 ML IV STA (17:10)
[2020-02-29] MEDS ORDERED: ONDANSETRON 4 MG/2 ML (SDV) Z0FRAN IVP STA (17:10)
--- NOTE | 2020-02-29 17:10 | ED General ---
General Chief Complaint: Abdominal/GI Problems Stated Complaint: WEAKNESS,NAUSEA Source of Information: Patient History of Present Illness Date Seen by Provider: Feb 29, 2020 Time Seen by Provider: 16:44 Initial Comments 39-year-old female presenting with complaints of generalized weakness, nausea. She states that since 9 AM or so she has been having a feeling of generalized weakness and fatigue. She also has chronic nausea but felt like it was worse today. Her Zofran that she has at home was not helping today. She also has a right-sided headache that has been present for the last 2 days. She denies any change in her vision or trouble with her sinuses. She has no difficulty swallowing. She has no shortness of breath or cough. She states that she has some chronic diarrhea. She is currently on her menstrual cycle and has some abdominal cramping from that but states that is normal for her. She denies any fever or chills. Allergies and Home Medications Allergies Coded Allergies: Penicillins (Verified Allergy, Unknown, 09/08/19) aspirin (Verified Allergy, Unknown, 09/08/19) bismuth subsalicylate (Verified Allergy, Unknown, 09/08/19) codeine (Verified Allergy, Unknown, 09/08/19) tramadol (Verified Allergy, Unknown, 09/08/19) Home Medications Cyclobenzaprine HCl 10 Mg Tablet, 10 MG PO Q8H PRN for SPASMS Prescribed by: ANN GONCALVES on 12/03/192015 Fluconazole 100 Mg Tablet, 100 MG PO DAILY PRN Prescribed by: VITALY LOMELI on 02/29/20 174 Medroxyprogesterone Acetate 10 Mg Tablet, 10 MG PO DAILY Prescribed by: PHAN VERDIN on 09/08/198 Naproxen 500 Mg Tablet, 500 MG PO BID Prescribed by: ANN GONCALVES on 12/03/192015 Sulfamethoxazole/Trimethoprim 1 Each Tablet, 1 EACH PO BID Prescribed by: VITALY LOMELI on 02/29/20 174 Patient Home Medication List Home Medication List Reviewed: Yes Review of Systems Review of Systems Constitutional: No chills, No fever; malaise, weakness (generalized) EENTM: see HPI Respiratory: no symptoms reported Cardiovascular: no symptoms reported Gastrointestinal: see HPI Genitourinary: see HPI Musculoskeletal: no symptoms reported Skin: no symptoms reported Psychiatric/Neurological: See HPI Hematologic/Lymphatic: No Symptoms Reported Past Eknlenz-Rivbrt-Bgvszs Hx Past Med/Social Hx: Reviewed Nursing Past Med/Soc Hx Patient Social History Alcohol Use: Denies Use Recreational Drug Use: No Smoking Status: Current Everyday Smoker Type Used: Cigarettes 2nd Hand Smoke Exposure: No Recent Hopitalizations: No Seasonal Allergies Seasonal Allergies: No Past Medical History Surgeries: Yes Section, Tubal Ligation Respiratory: No Cardiac: No Neurological: No Genitourinary: No Gastrointestinal: No Musculoskeletal: No Endocrine: Yes Hypothyroidsim HEENT: No Cancer: No Psychosocial: Yes Anxiety, Depression Integumentary: No Blood Disorders: No Adverse Reaction/Blood Tranf: No Physical Exam Vital Signs Vital Signs - First Documented 02/29/20 16:45 Temp 36.8 Pulse 95 Resp 20 B/P (MAP) 137/92 (107) Pulse Ox 96 O2 Delivery Room Air Capillary Refill : Height, Weight, BMI Height: '" Weight: lbs. oz. 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 Norm as Tested Skin: Normal Color, Warm/Dry Progress/Results/Core Measures Suspected Sepsis SIRS Temperature: Pulse: Respiratory Rate: Laboratory Tests 02/29/20 17:25: White Blood Count 13.7H Blood Pressure / Mean: Laboratory Tests 02/29/20 17:25: Platelet Count 278 02/29/20 17:35: Creatinine 0.73, Total Bilirubin < 0.2 Results/Orders Lab Results Laboratory Tests Test 02/29/20 16:45 02/29/20 17:25 02/29/20 17:35 Range/Units Urine Color YELLOW Urine Clarity CLOUDY Urine pH 6.0 5-9 Urine Specific [place] >=1.030 1.016-1.022 Urine Protein TRACE H NEGATIVE Urine Glucose (UA) NEGATIVE NEGATIVE Urine Ketones NEGATIVE NEGATIVE Urine Nitrite POSITIVE H NEGATIVE Urine Bilirubin NEGATIVE NEGATIVE Urine Urobilinogen 0.2 < = 1.0 MG/DL Urine Leukocyte Esterase NEGATIVE NEGATIVE Urine RBC (Auto) 2+ H NEGATIVE Urine RBC 10-25 H /HPF Urine WBC RARE /HPF Urine Squamous Epithelial Cells 0-2 /HPF Urine Crystals NONE /LPF Urine Bacteria LARGE H /HPF Urine Casts PRESENT /LPF Urine Granular Casts 0-2 H /LPF Urine Mucus SMALL H /LPF Urine Culture Indicated YES Urine Opiates Screen NEGATIVE NEGATIVE Urine Oxycodone Screen NEGATIVE NEGATIVE Urine Methadone Screen NEGATIVE NEGATIVE Urine Propoxyphene Screen NEGATIVE NEGATIVE Urine Barbiturates Screen NEGATIVE NEGATIVE Ur Tricyclic Antidepressants Screen NEGATIVE NEGATIVE Urine Phencyclidine Screen NEGATIVE NEGATIVE Urine Amphetamines Screen NEGATIVE NEGATIVE Urine Methamphetamines Screen NEGATIVE NEGATIVE Urine Benzodiazepines Screen NEGATIVE NEGATIVE Urine Cocaine Screen NEGATIVE NEGATIVE Urine Cannabinoids Screen NEGATIVE NEGATIVE White Blood Count 13.7 H 4.3-11.0 10^3/uL Red Blood Count 4.57 4.35-5.85 10^6/uL Hemoglobin 13.8 11.5-16.0 G/DL Hematocrit 43 35-52 % Mean Corpuscular Volume 94 80-99 FL Mean Corpuscular Hemoglobin 30 25-34 PG Mean Corpuscular Hemoglobin Concent 32 32-36 G/DL Red Cell Distribution Width 13.6 10.0-14.5 % Platelet Count 278 130-400 10^3/uL Mean Platelet Volume 10.5 H 7.4-10.4 FL Neutrophils (%) (Auto) 75 42-75 % Lymphocytes (%) (Auto) 18 12-44 % Monocytes (%) (Auto) 5 0-12 % Eosinophils (%) (Auto) 1 0-10 % Basophils (%) (Auto) 0 0-10 % Neutrophils # (Auto) 10.3 H 1.8-7.8 X 10^3 Lymphocytes # (Auto) 2.5 1.0-4.0 X 10^3 Monocytes # (Auto) 0.7 0.0-1.0 X 10^3 Eosinophils # (Auto) 0.1 0.0-0.3 10^3/uL Basophils # (Auto) 0.1 0.0-0.1 10^3/uL Sodium Level 139 135-145 MMOL/L Potassium Level 4.0 3.6-5.0 MMOL/L Chloride Level 104 98-107 MMOL/L Carbon Dioxide Level 24 21-32 MMOL/L Anion Gap 11 5-14 MMOL/L Blood Urea Nitrogen 15 7-18 MG/DL Creatinine 0.73 0.60-1.30 MG/DL Estimat Glomerular Filtration Rate > 60 BUN/Creatinine Ratio 21 Glucose Level 102 70-105 MG/DL Calcium Level 9.5 8.5-10.1 MG/DL Corrected Calcium 9.7 8.5-10.1 MG/DL Total Bilirubin < 0.2 0.1-1.0 MG/DL Aspartate Amino Transf (AST/SGOT) 16 5-34 U/L Alanine Aminotransferase (ALT/SGPT) 19 0-55 U/L Alkaline Phosphatase 105 40-136 U/L Total Protein 7.1 6.4-8.2 GM/DL Albumin 3.7 3.2-4.5 GM/DL Lipase 24 8-78 U/L My Orders Orders - VITALY LOMELI MD Ua Culture If Indicated (02/29/20 16:52) Urine Bedside (02/29/20 16:52) Drug Screen Stat (Urine) (02/29/20 16:53) Comprehensive Metabolic Panel (02/29/20 17:10) Lipase (02/29/20 17:10) Ed Iv/Invasive Line Start (02/29/20 17:10) Cbc With Automated Diff (02/29/20 17:10) Ns Iv 1000 Ml (Sodium Chloride 0.9%) (02/29/20 17:10) Ondansetron Injection (Zofran Injectio (02/29/20 17:10) Urine Culture (02/29/20 16:45) Sulfamethoxazole/Trimet Ds Tab (Bactrim (02/29/20 17:50) Vital Signs/I&O 02/29/20 02/29/20 16:45 18:37 Temp 36.8 Pulse 95 78 Resp 20 16 B/P (MAP) 137/92 (107) 116/59 Pulse Ox 96 97 O2 Delivery Room Air Room Air Capillary Refill : Progress Note #1: Progress Note Obtain basic labs with urinalysis Progress Note #2: Progress Note Urine shows signs of infection with nitrites and bacteria. It's also concentrat ed with a greater than 1.030 specific gravity. WBC slightly elevated to 13.7. Give IVF with Zofran 8 mg IV. Last Urine culture shows sensitive E. Coli to all antibiotics. Progress Note #3: Progress Note chemistry is normal as well without acute significant abnormality. Treat with bactrim DS as she responded to that with last UTI. Renew script for Bactrim and Diflucan at pharmacy. Departure Impression Primary Impression: Cystitis with hematuria Additional Impressions: Dehydration Generalized weakness Right-sided headache Disposition: HOME, SELF-CARE Condition: Improved Departure-Patient Inst. Decision time for Depature: 18:10 Referrals: [facility] (PCP) Primary Care Physician LEO JOSE APRN (Family) Primary Care Physician Patient Instructions: Dehydration, Adult (DC), Urinary Tract Infection, Adult (DC) Add. Discharge Instructions: Try to continue to stay well hydrated Take the full course of antibiotics. Follow up with clinic for continued concerns All discharge instructions reviewed with patient and/or family. Voiced understanding. Scripts Fluconazole (Diflucan) 100 Mg Tablet 100 MG PO DAILY PRN, #2 TAB Prov: VITALY LOMELI MD 02/29/20 Sulfamethoxazole/Trimethoprim (Bactrim Ds Tablet) 1 Each Tablet 1 EACH PO BID, #14 TAB Prov: VITALY LOMELI MD 02/29/20 VITALY LOMELI MD Feb 29, 2020 17:10
[2020-02-29 17:18] LABS: BILIRUBIN,URINE NEGATIVE (NEGATIVE); CLARITY,URINE CLOUDY; COLOR,URINE YELLOW; GLUCOSE, URINE (UA) NEGATIVE (NEGATIVE); KETONES,URINE NEGATIVE (NEGATIVE); LEUKOCYTE ESTERASE ,URINE NEGATIVE (NEGATIVE); NITRITE,URINE POSITIVE (NEGATIVE); PROTEIN,URINE TRACE (NEGATIVE)
[2020-02-29 17:19] LABS: BACTERIA,URINE LARGE /HPF; GRANULAR CASTS,URINE 0-2 /LPF; SQUAMOUS EPITHELIAL CELL,UR 0-2 /HPF; WBC,URINE RARE /HPF
[2020-02-29 17:22] LABS: AMPHETAMINE SCREEN, URINE NEGATIVE (NEGATIVE); BARBITURATE SCREEN URINE NEGATIVE (NEGATIVE); BENZODIAZEPINES SCREEN URINE NEGATIVE (NEGATIVE); CANNABINOID SCREEN, URINE NEGATIVE (NEGATIVE); COCAINE SCREEN URINE NEGATIVE (NEGATIVE); METHADONE STAT NEGATIVE (NEGATIVE); METHAMPHETAMINE SCREEN URINE S NEGATIVE (NEGATIVE); OPIATE SCREEN URINE NEGATIVE (NEGATIVE); OXYCODONE STAT NEGATIVE (NEGATIVE); PROPOXYPHENE STAT NEGATIVE (NEGATIVE); TRICYCLIC ANTIDEPRESSANTS SCRE NEGATIVE (NEGATIVE)
[2020-02-29 17:31] LABS: BASOPHILS % (AUTO) 0 % (0-10); EOSINOPHILS % (AUTO) 1 % (0-10); HEMATOCRIT 43 % (35-52); HEMOGLOBIN 13.8 G/DL (11.5-16.0); LYMPHOCYTES % (AUTO) 18 % (12-44); MEAN CORPUSCULAR HEMOGLOBIN 30 PG (25-34); MEAN CORPUSCULAR HGB CONC 32 G/DL (32-36); MEAN CORPUSCULAR VOLUME 94 FL (80-99); MEAN PLATELET VOLUME 10.5 FL (7.4-10.4); MONOCYTES % (AUTO) 5 % (0-12); NEUTROPHILS % (AUTO) 75 % (42-75); PLATELET COUNT 278 10^3/uL (130-400); WHITE BLOOD COUNT 13.7 10^3/uL (4.3-11.0)
[2020-02-29 17:32] LABS: BASOPHILS # (AUTO) 0.1 10^3/uL (0.0-0.1); EOSINOPHILS # (AUTO) 0.1 10^3/uL (0.0-0.3); LYMPHOCYTES # (AUTO) 2.5 X 10^3 (1.0-4.0); MONOCYTES # (AUTO) 0.7 X 10^3 (0.0-1.0); NEUTROPHILS # (AUTO) 10.3 X 10^3 (1.8-7.8)
[2020-02-29] MEDS ORDERED: FLUC100T PO (17:49)
[2020-02-29] MEDS ORDERED: SULF1TAB35 PO (17:49)
[2020-02-29] MEDS ORDERED: TRIM/SULFAMETH 160/800 (SEPTRA DS) TAB PO STA (17:50)
[2020-02-29 18:03] LABS: CARBON DIOXIDE 24 MMOL/L (21-32); CHLORIDE 104 MMOL/L (98-107); SODIUM 139 MMOL/L (135-145)
[2020-02-29 18:04] LABS: ALANINE AMINOTRANSFERASE 19 U/L (0-55); ALBUMIN 3.7 GM/DL (3.2-4.5); ALKALINE PHOSPHATASE 105 U/L (40-136); BILIRUBIN,TOTAL < 0.2 MG/DL (0.1-1.0); BUN/CREATININE RATIO 21; CALCIUM 9.5 MG/DL (8.5-10.1); CREATININE SERUM 0.73 MG/DL (0.60-1.30); GFR ESTIMATED > 60; GLUCOSE 102 MG/DL (70-105); LIPASE 24 U/L (8-78); TOTAL PROTEIN 7.1 GM/DL (6.4-8.2)
[2020-02-29 18:37] VITALS: BP 116/59
== END 2020-02-29 18:39 | disposition home or self-care (01) ==
LOC: EDUNIT# 16:39 → ER FS 16:40
DX: N30.91 Cystitis, unspecified with hematuria (principal); E86.0 Dehydration; R53.1 Weakness; R51 Headache; E66.9 Obesity, unspecified; F17.210 Nicotine dependence, cigarettes, uncomplicated; Z68.44 Body mass index [BMI] 60.0-69.9, adult; Z88.0 Allergy status to penicillin; Z88.5 Allergy status to narcotic agent; Z88.6 Allergy status to analgesic agent; Z88.8 Allergy status to other drugs, medicaments and biological substances
CPT/HCPCS: 36415; 80053; 80306; 81000; 83690; 84703; 85025; 87088

== ENCOUNTER 2020-11-19 18:10 | Emergency (ER) | payer MEDICAID ==
--- NOTE | 2020-11-19 18:20 | ED GI ---
General Chief Complaint: Abdominal/GI Problems Stated Complaint: NAUSEA,WEAKNESS,FATIGUE History of Present Illness Date Seen by Provider: Nov 19, 2020 Time Seen by Provider: 18:15 Initial Comments 40-year-old female presents with some generalized weakness, nausea, fatigue, increased thirst. Patient reports that the symptoms have been going on for about 2 days. She feels like she is thirsty all the time, feels like maybe she is dehydrated. Patient has not been out in the heat. Patient has an 8-year-old who is got a little bit of nausea diarrhea. Otherwise she denies any cough, shortness of breath, chest pain, diarrhea, vomiting or other systemic complaints. Allergies and Home Medications Allergies Coded Allergies: Penicillins (Verified Allergy, Unknown, 09/08/19) aspirin (Verified Allergy, Unknown, 09/08/19) bismuth subsalicylate (Verified Allergy, Unknown, 09/08/19) codeine (Verified Allergy, Unknown, 09/08/19) tramadol (Verified Allergy, Unknown, 09/08/19) Home Medications Cyclobenzaprine HCl 10 Mg Tablet, 10 MG PO Q8H PRN for SPASMS Prescribed by: ANN GONCALVES on 12/03/192015 Fluconazole 100 Mg Tablet, 100 MG PO DAILY PRN Prescribed by: VITALY LOMELI on 02/29/201748 Medroxyprogesterone Acetate 10 Mg Tablet, 10 MG PO DAILY Prescribed by: PHAN VERDIN on 09/08/192247 Naproxen 500 Mg Tablet, 500 MG PO BID Prescribed by: ANN GONCAVLES on 12/03/192015 Sulfamethoxazole/Trimethoprim 1 Each Tablet, 1 EACH PO BID Prescribed by: VITALY LOMELI on 02/29/20 174 Patient Home Medication List Home Medication List Reviewed: Yes Review of Systems Review of Systems Constitutional: No chills; malaise, weakness Respiratory: No Symptoms Reported, Cough; Denies Shortness of Air, Denies SOA at Rest, Denies Wheezing Cardiovascular: Denies Chest Pain, Denies Irregular Heart Rate Gastrointestinal: Denies Abdominal Pain, Denies Diarrhea; Nausea; Denies Vomiting Genitourinary: No Symptoms Reported Musculoskeletal: no symptoms reported Skin: no symptoms reported Psychiatric/Neurological: No Symptoms Reported Endocrine: No Symptoms Reported Past Xbwimww-Sjhyzy-Tirlan Hx Past Med/Social Hx: Reviewed Nursing Past Med/Soc Hx Patient Social History Type Used: Cigarettes 2nd Hand Smoke Exposure: No Recent Hopitalizations: No Seasonal Allergies Seasonal Allergies: No Past Medical History Surgeries: Yes Section, Tubal Ligation Respiratory: No Cardiac: No 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 oz. kg; 61.00 BMI Method: General Appearance: no apparent distress, obese (Morbid) Respiratory: lungs clear, normal breath sounds Cardiovascular: normal peripheral pulses, regular rate, rhythm Gastrointestinal: non tender, soft Extremities: normal range of motion Neurologic/Psychiatric: alert, normal mood/affect, oriented x 3 Skin: normal color, warm/dry Progress/Results/Core Measures Results/Orders Lab Results Laboratory Tests Test 11/19/20 18:38 11/19/20 18:45 Range/Units White Blood Count 14.0 H 4.3-11.0 10^3/uL Red Blood Count 4.89 4.35-5.85 10^6/uL Hemoglobin 14.6 11.5-16.0 G/DL Hematocrit 46 35-52 % Mean Corpuscular Volume 93 80-99 FL Mean Corpuscular Hemoglobin 30 25-34 PG Mean Corpuscular Hemoglobin Concent 32 32-36 G/DL Red Cell Distribution Width 14.3 10.0-14.5 % Platelet Count 281 130-400 10^3/uL Mean Platelet Volume 10.4 7.4-10.4 FL Immature Granulocyte % (Auto) 0 % Neutrophils (%) (Auto) 70 42-75 % Lymphocytes (%) (Auto) 23 12-44 % Monocytes (%) (Auto) 5 0-12 % Eosinophils (%) (Auto) 1 0-10 % Basophils (%) (Auto) 1 0-10 % Neutrophils # (Auto) 9.7 H 1.8-7.8 X 10^3 Lymphocytes # (Auto) 3.3 1.0-4.0 X 10^3 Monocytes # (Auto) 0.7 0.0-1.0 X 10^3 Eosinophils # (Auto) 0.2 0.0-0.3 10^3/uL Basophils # (Auto) 0.1 0.0-0.1 10^3/uL Immature Granulocyte # (Auto) 0.1 0.0-0.1 10^3/uL Sodium Level 135 135-145 MMOL/L Potassium Level 4.2 3.6-5.0 MMOL/L Chloride Level 103 98-107 MMOL/L Carbon Dioxide Level 21 21-32 MMOL/L Anion Gap 11 5-14 MMOL/L Blood Urea Nitrogen 16 7-18 MG/DL Creatinine 0.77 0.60-1.30 MG/DL Estimat Glomerular Filtration Rate > 60 BUN/Creatinine Ratio 21 Glucose Level 92 70-105 MG/DL Calcium Level 9.3 8.5-10.1 MG/DL Corrected Calcium 9.7 8.5-10.1 MG/DL Total Bilirubin 0.2 0.1-1.0 MG/DL Aspartate Amino Transf (AST/SGOT) 15 5-34 U/L Alanine Aminotransferase (ALT/SGPT) 16 0-55 U/L Alkaline Phosphatase 116 40-136 U/L Total Protein 7.4 6.4-8.2 GM/DL Albumin 3.5 3.2-4.5 GM/DL Urine Color YELLOW Urine Clarity CLEAR Urine pH 6.0 5-9 Urine Specific [place] >=1.030 1.016-1.022 Urine Protein NEGATIVE NEGATIVE Urine Glucose (UA) NEGATIVE NEGATIVE Urine Ketones NEGATIVE NEGATIVE Urine Nitrite NEGATIVE NEGATIVE Urine Bilirubin NEGATIVE NEGATIVE Urine Urobilinogen 0.2 < = 1.0 MG/DL Urine Leukocyte Esterase NEGATIVE NEGATIVE Urine RBC (Auto) 2+ H NEGATIVE Urine RBC 2-5 H /HPF Urine WBC 0-2 /HPF Urine Squamous Epithelial Cells 10-25 H /HPF Urine Crystals NONE /LPF Urine Bacteria FEW H /HPF Urine Casts NONE /LPF Urine Mucus MODERATE H /LPF Urine Other NO /HPF My Orders Orders - GONCALVES,ANN L DO Cbc With Automated Diff (11/19/20 18:21) Comprehensive Metabolic Panel (11/19/20 18:21) Lipase (11/19/20 18:21) Ua Culture If Indicated (11/19/20 18:21) Hemoglobin A1c (11/19/20 18:22) Manual Differential (11/19/20 18:38) Vital Signs/I&O 11/19/20 18:50 Temp 36.1 Pulse 92 Resp 20 B/P (MAP) 112/59 (76) Pulse Ox 95 Progress Progress Note : Progress Note Patient's physical exam shows no acute findings. Patient has a slightly elevated white count otherwise no findings. Her child also has some nausea and diarrhea. Discussed with her that possibly is just a viral illness and stable habit. I will prescribe her some Zofran. She should drink plenty of fluids and is discharged home in stable condition. Departure Impression Primary Impression: Nausea alone Additional Impression: Gastroenteritis Disposition: 01 HOME, SELF-CARE Condition: Stable Departure-Patient Inst. Referrals: [facility] (PCP) Primary Care Physician LEO JOSE APRN (Family) Primary Care Physician Patient Instructions: Nausea and Vomiting, Adult (DC) Scripts Ondansetron (Ondansetron Odt) 4 Mg Tab.rapdis 4 MG PO Q6H PRN for NAUSEA/VOMITING, #20 TAB 0 Refills Prov: ANN GONCALVES DO 11/19/20 ANN GONCALVES DO Nov 19, 2020 18:20
[2020-11-19 18:48] LABS: HEMATOCRIT 46 % (35-52); HEMOGLOBIN 14.6 G/DL (11.5-16.0); MEAN CORPUSCULAR HEMOGLOBIN 30 PG (25-34); MEAN CORPUSCULAR HGB CONC 32 G/DL (32-36); MEAN CORPUSCULAR VOLUME 93 FL (80-99); MEAN PLATELET VOLUME 10.4 FL (7.4-10.4); PLATELET COUNT 281 10^3/uL (130-400)
[2020-11-19 18:49] LABS: BASOPHILS # (AUTO) 0.1 10^3/uL (0.0-0.1); BASOPHILS % (AUTO) 1 % (0-10); EOSINOPHILS # (AUTO) 0.2 10^3/uL (0.0-0.3); EOSINOPHILS % (AUTO) 1 % (0-10); LYMPHOCYTES # (AUTO) 3.3 X 10^3 (1.0-4.0); LYMPHOCYTES % (AUTO) 23 % (12-44); MONOCYTES # (AUTO) 0.7 X 10^3 (0.0-1.0); MONOCYTES % (AUTO) 5 % (0-12); NEUTROPHILS # (AUTO) 9.7 X 10^3 (1.8-7.8); NEUTROPHILS % (AUTO) 70 % (42-75)
[2020-11-19 19:06] LABS: ALANINE AMINOTRANSFERASE 16 U/L (0-55); ALBUMIN 3.5 GM/DL (3.2-4.5); ALKALINE PHOSPHATASE 116 U/L (40-136); BILIRUBIN,TOTAL 0.2 MG/DL (0.1-1.0); BUN/CREATININE RATIO 21; CALCIUM 9.3 MG/DL (8.5-10.1); CARBON DIOXIDE 21 MMOL/L (21-32); CHLORIDE 103 MMOL/L (98-107); CREATININE SERUM 0.77 MG/DL (0.60-1.30); GFR ESTIMATED > 60; GLUCOSE 92 MG/DL (70-105); POTASSIUM 4.2 MMOL/L (3.6-5.0); SODIUM 135 MMOL/L (135-145); TOTAL PROTEIN 7.4 GM/DL (6.4-8.2)
[2020-11-19 19:10] LABS: BACTERIA,URINE FEW /HPF; BILIRUBIN,URINE NEGATIVE (NEGATIVE); CLARITY,URINE CLEAR; COLOR,URINE YELLOW; GLUCOSE, URINE (UA) NEGATIVE (NEGATIVE); KETONES,URINE NEGATIVE (NEGATIVE); LEUKOCYTE ESTERASE ,URINE NEGATIVE (NEGATIVE); NITRITE,URINE NEGATIVE (NEGATIVE); PROTEIN,URINE NEGATIVE (NEGATIVE); WBC,URINE 0-2 /HPF
[2020-11-19] MEDS ORDERED: ONDA4TAB11 PO (19:31)
[2020-11-19 19:41] VITALS: BP 112/59
[2020-11-19 19:46] LABS: LIPASE 25 U/L (8-78)
[2020-11-19 19:58] LABS: LYMPHOCYTES % (MANUAL) 25 %; MONOCYTES % (MANUAL) 2 %; NEUTROPHILS % (MANUAL) 73 %
== END 2020-11-19 19:42 | disposition home or self-care (01) ==
LOC: EDUNIT# 18:10 → ER FS 18:11
DX: K52.9 Noninfective gastroenteritis and colitis, unspecified (principal); E66.01 Morbid (severe) obesity due to excess calories; Z68.44 Body mass index [BMI] 60.0-69.9, adult
CPT/HCPCS: 36415; 80053; 81000; 83036; 83690; 85007; 85025; 85027

== ENCOUNTER 2020-12-20 17:22 | Emergency (ER) | payer MEDICAID ==
[~2020-12-20] VITALS: Ht 157.5 cm; Wt 145.0 kg
[~2020-12-20 17:22] MED LIST changes: +ONDA4TAB11 PO; -SULF1TAB35 PO; +SULF1TAB38 PO
--- NOTE | 2020-12-20 17:36 | ED EENT ---
History of Present Illness General Stated Complaint: DIZZY | VOMITING | NAUSEA History of Present Illness Date Seen by Provider: Dec 20, 2020 Time Seen by Provider: 17:35 Initial Comments 40-year-old female presents with dizziness and nausea by EMS. Onset of di zziness today with history of similar symptoms in the past. Patient has daily nausea and she takes Zofran daily as well as omeprazole. Denies any recent illness, fever or chills. Denies abdominal pain. States the dizziness makes her feel like she is spinning. Denies any numbness, weakness or difficulty with speech. Allergies and Home Medications Allergies Coded Allergies: Penicillins (Verified Allergy, Unknown, 09/08/19) aspirin (Verified Allergy, Unknown, 09/08/19) bismuth subsalicylate (Verified Allergy, Unknown, 09/08/19) codeine (Verified Allergy, Unknown, 09/08/19) tramadol (Verified Allergy, Unknown, 09/08/19) Home Medications Cyclobenzaprine HCl 10 Mg Tablet, 10 MG PO Q8H PRN for SPASMS Prescribed by: ANN GONCALVES on 12/03/192015 Fluconazole 100 Mg Tablet, 100 MG PO DAILY PRN Prescribed by: VITALY LOMELI on 02/29/201748 Meclizine HCl 25 Mg Tablet, 25 MG PO Q8H Prescribed by: MALCOM VILLARREAL on 12/20/201746 Medroxyprogesterone Acetate 10 Mg Tablet, 10 MG PO DAILY Prescribed by: PHAN VERDIN on 09/08/192247 Naproxen 500 Mg Tablet, 500 MG PO BID Prescribed by: ANN GONCALVES on 12/03/192015 Ondansetron 4 Mg Tab.rapdis, 4 MG PO Q6H PRN for NAUSEA/VOMITING Prescribed by: ANN GONCALVES on 11/19/20 193 Sulfamethoxazole/Trimethoprim 1 Each Tablet, 1 EACH PO BID Prescribed by: VITALY LOMELI on 02/29/20 174 Patient Home Medication List Home Medication List Reviewed: Yes Review of Systems Review of Systems Constitutional: No chills; dizziness; No fever; malaise; No weakness Eyes: Denies Blindness, Denies Blurred Vision Ears: Pain (R ear feels "full") Nose: no symptoms reported Mouth: no symptoms reported Respiratory: No cough, No short of breath Cardiovascular: No chest pain, No edema, No palpitations, No syncope Gastrointestinal: No abdominal pain, No loss of appetite; nausea, vomiting Musculoskeletal: No back pain, No joint pain, No muscle pain, No muscle stiffness, No muscle cramps, No muscle twitching, No muscle weakness, No neck pain Skin: No change in color, No rash Neurological: Denies Anxiety, Denies Depressed, Denies Headache, Denies Numbness, Denies Paresthesia, Denies Pre-Existing Deficit, Denies Seizure, Denies Tingling, Denies Tremors, Denies Weakness Past Kmecdrt-Sfssmv-Ysuagy Hx Seasonal Allergies Seasonal Allergies: No Past Medical History Surgeries: Yes Section, Tubal Ligation Respiratory: No Cardiac: No 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 oz. kg; 61.00 BMI Method: General Appearance: no apparent distress, obese Eyes: bilateral eye normal inspection, bilateral eye PERRL, bilateral eye EOMI Ears: bilateral ear auricle normal, bilateral ear canal normal, bilateral ear TM normal Nose: normal inspection; No sinus tenderness Mouth/Throat: normal mouth inspection, pharynx normal Neck: non-tender, full range of motion, supple, normal inspection Cardiovascular: regular rate, rhythm, no edema, no JVD Respiratory: chest non-tender, lungs clear, normal breath sounds, no respiratory distress, no accessory muscle use Gastrointestinal: normal bowel sounds, non tender, soft Neurologic/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: 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-XII nml as tested, no motor/sensory deficits, alert, normal mood/affect, oriented x 3 Skin: normal color, warm/dry Progress/Results/Core Measures Results/Orders My Orders Orders - ROVENSTINE,MALCOM L DO Meclizine Tablet (Antivert Tablet) (12/20/20 17:45) Meclizine Tablet (Antivert Tablet) (12/20/20 17:49) Famotidine Injection (Pepcid Injection) (12/20/20 18:00) Ondansetron Injection (Zofran Injectio (12/20/20 18:00) Diphenhydramine Injection (Benadryl Inje (12/20/20 18:45) Ns Iv 1000 Ml (Sodium Chloride 0.9%) (12/20/20 18:45) Medications Given in ED Vital Signs/I&O 12/20/20 19:41 Temp 36.4 Pulse 78 Resp 16 B/P (MAP) 128/79 (97) Pulse Ox 98 Progress Progress Note : Progress Note clinically episode of vertigo. Pt uncooperative to take po meclizine and delayed taking it for a long time. When she eventually took it she had improvement of sx, was able to move and roll over. Stood to walk out of department without incident Departure Impression Primary Impression: Dizziness Disposition: 01 HOME, SELF-CARE Condition: Improved Departure-Patient Inst. Decision time for Depature: 19:30 Referrals: [facility] (PCP) Primary Care Physician LEO JOSE APRN (Family) Primary Care Physician Patient Instructions: Vertigo (a Type of Dizziness) (DC) Add. Discharge Instructions: follow up with your PCPJadyn in 3 days if not improving, sooner if worse Scripts Meclizine HCl (Meclizine HCl) 25 Mg Tablet 25 MG PO Q8H for Dizziness, #20 TAB Prov: MALCOM VILLARREAL DO 12/20/20 MALCOM VILLARREAL DO Dec 20, 2020 17:36
[2020-12-20] MEDS ORDERED: MECLIZINE 25 MG (ANTIVERT) TAB PO ONE (17:45)
[2020-12-20] MEDS ORDERED: MECL-149 PO (17:47)
[2020-12-20] MEDS ORDERED: MECLIZINE 25 MG (ANTIVERT) TAB ONE (17:49)
[2020-12-20] MEDS ORDERED: ONDANSETRON 4 MG/2 ML (SDV) Z0FRAN IVP ONE (18:00)
[2020-12-20] MEDS ORDERED: FAMOTIDINE 20MG/2ML IV (PEPCID) IVP ONE (18:00)
[2020-12-20] MEDS ORDERED: NS IV 1000 ML 1,000 ML IV SCH (18:45)
[2020-12-20] MEDS ORDERED: diphenhydrAMINE 50 MG/ML INJ (BENADRYL) IVP ONE (18:45)
[2020-12-20 19:41] VITALS: BP 128/79
== END 2020-12-20 19:41 | disposition home or self-care (01) ==
LOC: EDUNIT# 17:22 → ER FS 17:29
DX: R42 Dizziness and giddiness (principal); E66.9 Obesity, unspecified; Z68.44 Body mass index [BMI] 60.0-69.9, adult

== ENCOUNTER 2021-01-16 18:55 | Emergency (ER) | payer MEDICAID ==
[~2021-01-16] VITALS: Ht 57.5 cm; Wt 76.2 kg
[~2021-01-16 18:55] MED LIST changes: +MECL-149 PO
[2021-01-16 19:00] VITALS: BP 126/65
--- NOTE | 2021-01-16 19:05 | ED Upper Extremity ---
General Stated Complaint: LT SHOULDER PAIN History of Present Illness Date Seen by Provider: Jan 16, 2021 Time Seen by Provider: 19:05 Initial Comments 40-year-old female presents with left shoulder pain. She is not sure how she hurt it. She thinks maybe she slept on it wrong. She has difficulty lifting it away from her body with limited range of motion. She denies any injury falls or other trauma. Patient reports that started yesterday. No other systemic complaints. Allergies and Home Medications Allergies Coded Allergies: Penicillins (Verified Allergy, Unknown, 09/08/19) aspirin (Verified Allergy, Unknown, 09/08/19) bismuth subsalicylate (Verified Allergy, Unknown, 09/08/19) codeine (Verified Allergy, Unknown, 09/08/19) tramadol (Verified Allergy, Unknown, 09/08/19) Home Medications Cyclobenzaprine HCl 10 Mg Tablet, 10 MG PO Q8H PRN for SPASMS Prescribed by: ANN GONCALVES on 12/03/192015 Fluconazole 100 Mg Tablet, 100 MG PO DAILY PRN Prescribed by: VITALY LOMELI on 02/29/201748 Meclizine HCl 25 Mg Tablet, 25 MG PO Q8H Prescribed by: MALCOM VILLARREAL on 12/20/201746 Medroxyprogesterone Acetate 10 Mg Tablet, 10 MG PO DAILY Prescribed by: PHAN VERDIN on 09/08/192247 Naproxen 500 Mg Tablet, 500 MG PO BID Prescribed by: ANN GONCALVES on 12/03/192015 Ondansetron 4 Mg Tab.rapdis, 4 MG PO Q6H PRN for NAUSEA/VOMITING Prescribed by: ANN GONCALVES on 11/19/20 193 Sulfamethoxazole/Trimethoprim 1 Each Tablet, 1 EACH PO BID Prescribed by: VITALY LOMELI on 02/29/20 174 Patient Home Medication List Home Medication List Reviewed: Yes Review of Systems Constitutional: no symptoms reported EENTM: no symptoms reported Respiratory: no symptoms reported Cardiovascular: no symptoms reported Gastrointestinal: no symptoms reported Genitourinary: no symptoms reported Musculoskeletal: see HPI Skin: no symptoms reported Psychiatric/Neurological: No Symptoms Reported Past Gikfwzf-Tugptj-Vwowcf Hx Seasonal Allergies Seasonal Allergies: No Past Medical History Surgeries: Yes Section, Tubal Ligation Respiratory: No Cardiac: No Neurological: No 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 oz. kg; 58.00 BMI Method: General Appearance: obese Neck: full range of motion, supple Cardiovascular: normal peripheral pulses, regular rate, rhythm Respiratory: lungs clear, normal breath sounds Shoulder: No bone tenderness, No deformity; limited ROM, soft tissue tenderness; No swelling Elbow/Forearm: normal inspection Wrist: Yes normal inspection Hand: normal inspection Neurologic/Tendon: normal sensation Neurologic/Psychiatric: alert, normal mood/affect, oriented x 3 Progress/Results/Core Measures Results/Orders My Orders Orders - ANN GONCALVES DO Shoulder 3 View Left (01/16/21 19:05) Vital Signs/I&O 01/16/21 19:00 Temp 36.5 Pulse 88 Resp 16 B/P (MAP) 126/65 (85) O2 Delivery Room Air Progress Progress Note : Progress Note Patient with negative left shoulder x-ray. I discussed with her the need to follow-up with her primary care provider to arrange for outpatient physical therapy. She issues Voltaren gel for pain along with Tylenol and ibuprofen. She is discharged home in stable condition Diagnostic Imaging Diagonstic Imaging: Xray Plain Films/CT/US/NM/MRI: other Comments Date of Exam:01/16/21 SHOULDER 3 VIEW LEFT INDICATION: Left shoulder pain. EXAMINATION: AP, oblique and transscapular views of the left shoulder were obtained. FINDINGS: No fracture or acute bony abnormality is seen. Joint spaces are unremarkable. IMPRESSION: Negative left shoulder. Reviewed: Reviewed by Me, Reviewed/Discussed Departure Impression Primary Impression: Injury of left shoulder Qualified Codes: S49.92XA - Unspecified injury of left shoulder and upper arm, initial encounter Additional Impression: Acute pain of left shoulder Disposition: 01 HOME, SELF-CARE Condition: Stable Departure-Patient Inst. Referrals: [facility] [place]) Primary Care Physician LEO JOSE APRN (Family) Primary Care Physician Patient Instructions: Shoulder Rehab Exercises, Phase 1, Shoulder Rehab Exercises, Phase 2, Shoulder Pain ED Add. Discharge Instructions: Follow-up with your primary care provider to arrange for outpatient physical therapy [id number] Voltaren cream or its generic equivalent to your left shoulder as directed on package Tylenol or ibuprofen as needed for pain Please review the shoulder exercise handout and start phase 1 to help rehab your shoulder range of motion ANN GONCALVES DO Jan 16, 2021 19:05
--- NOTE | 2021-01-16 19:18 | Diagnostic Imaging Report ---
INDICATION: Left shoulder pain. EXAMINATION: AP, oblique and transscapular views of the left shoulder were obtained. FINDINGS: No fracture or acute bony abnormality is seen. Joint spaces are unremarkable. IMPRESSION: Negative left shoulder. Dictated by: Dictated on workstation # [id number]
== END 2021-01-16 19:52 | disposition home or self-care (01) ==
LOC: EDUNIT# 18:55 → ER FS 18:56
DX: S49.92XA Unspecified injury of left shoulder and upper arm, initial encounter (principal); E66.9 Obesity, unspecified; Z68.43 Body mass index [BMI] 50.0-59.9, adult; X58.XXXA Exposure to other specified factors, initial encounter
CPT/HCPCS: 73030

== ENCOUNTER 2021-09-14 20:33 | Emergency (ER) | payer MEDICAID ==
[~2021-09-14] VITALS: Ht 160 cm; Wt 154.2 kg
[~2021-09-14 20:33] MED LIST changes: +CYCL10TA25 PO; -CYCL10TA9 PO
[2021-09-14] MEDS ORDERED: METOCLOPRAMIDE INJ 10 MG/2 ML (REGLAN) IVP STA (20:42)
[2021-09-14] MEDS ORDERED: NS IV 1000 ML 1,000 ML IV STA (20:42)
[2021-09-14] MEDS ORDERED: diphenhydrAMINE 50 MG/ML INJ (BENADRYL) IVP ONE (20:45)
--- NOTE | 2021-09-14 20:47 | ED General ---
General Chief Complaint: Abdominal/GI Problems Stated Complaint: N/V/D Source of Information: Patient, EMS Exam Limitations: No Limitations History of Present Illness Date Seen by Provider: Sep 14, 2021 Time Seen by Provider: 20:35 Initial Comments 40-year-old female with past medical history of hypothyroidism and intermittent vertigo that is been going on for a couple years coming in due to vertigo and nausea. Started a couple hours ago. She took her meclizine and Zofran that she typically takes almost daily. She says this time it is not helping. She has been to the ER numerous times for this in the past. She has vomited a couple times nonbloody nonbilious. Otherwise denies any pain anywhere including chest pain, abdominal pain, no weakness, numbness, headache, vision changes, hearing changes, or any other concerns. LMP was 2 days ago. Allergies and Home Medications Allergies Coded Allergies: Penicillins (Verified Allergy, Unknown, 09/08/19) aspirin (Verified Allergy, Unknown, 09/08/19) bismuth subsalicylate (Verified Allergy, Unknown, 09/08/19) codeine (Verified Allergy, Unknown, 09/08/19) tramadol (Verified Allergy, Unknown, 09/08/19) Patient Home Medication List Home Medication List Reviewed: Yes Cyclobenzaprine HCl (Cyclobenzaprine HCl) 10 Mg Tablet, 10 MG PO Q8H PRN for SPASMS Prescribed by: ANN GONCALVES on 12/03/192015 Fluconazole (Diflucan) 100 Mg Tablet, 100 MG PO DAILY PRN Prescribed by: VITALY LOMELI on 02/29/20 174 Meclizine HCl (Meclizine HCl) 25 Mg Tablet, 25 MG PO Q8H Prescribed by: MALCOM VILLARREAL on 12/20/20 174 Medroxyprogesterone Acetate (Provera) 10 Mg Tablet, 10 MG PO DAILY Prescribed by: PHAN VERDIN on 09/08/192247 Naproxen (Naprosyn) 500 Mg Tablet, 500 MG PO BID Prescribed by: ANN GONCALVES on 12/03/192015 Ondansetron (Ondansetron Odt) 4 Mg Tab.rapdis, 4 MG PO Q6H PRN for NAUSEA/VOMITING Prescribed by: ANN GONCALVES on 11/19/201930 Promethazine HCl (Promethazine Tablet) 25 Mg Tablet, 25 MG PO Q6H PRN for NAUSEA/VOMITING-2ND LINE Prescribed by: LIBERTY CAMPOS on 09/14/212156 Sulfamethoxazole/Trimethoprim (Bactrim Ds Tablet) 1 Each Tablet, 1 EACH PO BID Prescribed by: VITALY LOMELI on 02/29/20 1749 Review of Systems Review of Systems Constitutional: No chills, No fever EENTM: other (vertigo, room spinning when turns head) Respiratory: no symptoms reported Cardiovascular: no symptoms reported Gastrointestinal: no symptoms reported Genitourinary: no symptoms reported Musculoskeletal: no symptoms reported Skin: no symptoms reported Psychiatric/Neurological: Denies Headache, Denies Numbness, Denies Seizure, Denies Weakness; Other Hematologic/Lymphatic: No Symptoms Reported Immunological/Allergic: no symptoms reported All Other Systems Reviewed Negative Unless Noted: Yes Past Gcrcjjv-Kzpzjs-Yxugzt Hx Patient Social History Tobacco Use?: No Seasonal Allergies Seasonal Allergies: No Past Medical History Surgeries: Yes Section, Tubal Ligation Respiratory: No Cardiac: No Neurological: No 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 oz. kg; 230.00 BMI Method: General Appearance: No Apparent Distress, WD/WN Eyes: Bilateral Eye Normal Inspection, Bilateral Eye PERRL, Bilateral Eye EOMI HEENT: PERRL/EOMI, TMs Normal, Normal ENT Inspection, Pharynx Normal Neck: Full Range of Motion, Normal Inspection, Non Tender, Supple Respiratory: Chest Non Tender, Lungs Clear, Normal Breath Sounds, No Accessory Muscle Use, No Respiratory Distress Cardiovascular: Regular Rate, Rhythm, No Edema, Normal Peripheral Pulses Gastrointestinal: Normal Bowel Sounds, Non Tender, Soft Back: Normal Inspection, No CVA Tenderness Extremity: Normal Capillary Refill, Normal Inspection, Normal Range of Motion, Non Tender, No Calf Tenderness, No Pedal Edema Neurologic/Psychiatric: Alert, Oriented x3, No Motor/Sensory Deficits, Normal Mood/Affect, welfare eligibility interviewer II-XII Norm as Tested Skin: Normal Color, Warm/Dry Lymphatic: No Adenopathy Progress/Results/Core Measures Suspected Sepsis SIRS Temperature: Pulse: Respiratory Rate: Blood Pressure / Mean: Results/Orders My Orders Orders - LIBERTY CAMPOS MD Iv 1000 Ml (Sodium Chloride 0.9%) (09/14/21 20:42) Metoclopramide Injection (Reglan Injecti (09/14/21 20:42) Diphenhydramine Injection (Benadryl Inje (09/14/21 20:45) Promethazine Injection (Phenergan Injec (09/14/21 21:45) Medications Given in ED Current Medications Medications Dose Ordered Sig/Asher Route Start Time Stop Time Status Last Admin Dose Admin Diphenhydramine HCl 25 mg ONCE ONCE IVP 09/14/21 20:45 09/14/21 20:46 DC 09/14/21 20:49 25 MG Promethazine HCl 25 mg ONCE ONCE IVP 09/14/21 21:45 09/14/21 21:46 DC 09/14/21 21:45 25 MG Vital Signs/I&O 09/14/21 20:35 Temp 36.4 Pulse 82 Resp 20 B/P (MAP) 124/74 (91) Pulse Ox 96 O2 Delivery Room Air Capillary Refill : Progress Note : Progress Note 40-year-old female coming in due to vertigo-like symptoms. She has been dealing with this for quite some time, and today is a worse day. She is already taken her meclizine and Zofran. An IV was placed and she was given a bolus of IV fluids, Reglan, and IV Benadryl to see if it helps with her nausea and symptoms. Symptom significantly improved after medications. Given the vertigo has been an issue for over a year, I will give her information on how to follow-up with ENT. She was then discharged home in stable condition with strict return precautions Departure Impression Primary Impression: Nausea and vomiting Qualified Codes: R11.2 - Nausea with vomiting, unspecified Additional Impression: Vertigo Disposition: HOME, SELF-CARE Condition: Stable Departure-Patient Inst. Decision time for Depature: 21:58 Referrals: [facility] [place] Primary Care Physician LEO JOSE APRN (Family) Primary Care Physician AMIRA BAL MD Patient Instructions: Vertigo ED Add. Discharge Instructions: Given the vertigo which is the cause of your dizziness has been going on for over a year, I recommend following up with Dr. Bal, he is an director of research in [place]. You can also ask your primary care provider if they have any contacts of anyone that closer in [place]. I sent a new medication to your pharmacy for nausea. Start with your Zofran, if that is not working then you can take the Phenergan. Scripts Promethazine HCl (Promethazine Tablet) 25 Mg Tablet 25 MG PO Q6H PRN for NAUSEA/VOMITING-2ND LINE for 5 Days, #20 TAB Prov: LIBERTY CAMPOS MD 09/14/21 Work/School Note: Work Release Form Date Seen in the Emergency Department: Sep 14, 2021 Return to Work: Sep 16, 2021 Restrictions: No Restrictions LIBERTY CAMPOS MD Sep 14, 2021 20:47
[2021-09-14] MEDS ORDERED: PROMETHAZINE INJ 25 MG/ML (PHENERGAN) AMP IVP ONE (21:45)
[2021-09-14] MEDS ORDERED: PROM25TA14 PO (21:57)
[2021-09-14 22:00] VITALS: BP 100/82
== END 2021-09-14 22:00 | disposition home or self-care (01) ==
LOC: EDUNIT# 20:33 → ER FS 20:34
DX: R11.2 Nausea with vomiting, unspecified (principal); R42 Dizziness and giddiness
CPT/HCPCS: 99283

== ENCOUNTER → 2022-09-14 | Outpatient (CLI) | payer MEDICAID ==
[~2022-09-14] MED LIST changes: +PROM25TA14 PO
--- NOTE | 2022-09-14 09:36 | Diagnostic Imaging Report ---
INDICATION: Left knee injury 3 views of left knee show no fracture, dislocation or other acute abnormalities. IMPRESSION: Negative left knee. Dictated by: Dictated on workstation # [id number]
== END ==
LOC: RAD FS 09:03
PROVIDERS: ATTEND Nurse Practitioner Family
DX: S89.92XA Unspecified injury of left lower leg, initial encounter (principal); X58.XXXA Exposure to other specified factors, initial encounter
CPT/HCPCS: 73562

== ENCOUNTER 2022-09-23 23:19 | Emergency (ER) | payer MEDICAID ==
[~2022-09-23] VITALS: Ht 157.5 cm; Wt 145.1 kg
[2022-09-23] MEDS ORDERED: PANTOPRAZOLE 40 MG (PROTONIX) VIAL IV STA (23:35)
[2022-09-23] MEDS ORDERED: KETOROLAC 15 MG/ML VIAL IVP STA (23:35)
[2022-09-23 23:39] LABS: BASOPHILS % (AUTO) 0 % (0-10); EOSINOPHILS # (AUTO) 0.2 10^3/uL (0.0-0.3); EOSINOPHILS % (AUTO) 2 % (0-10); HEMATOCRIT 44 % (35-52); HEMOGLOBIN 14.1 g/dL (11.5-16.0); LYMPHOCYTES # (AUTO) 2.5 10^3/uL (1.0-4.0); LYMPHOCYTES % (AUTO) 22 % (12-44); MEAN CORPUSCULAR HEMOGLOBIN 30 pg (25-34); MEAN CORPUSCULAR HGB CONC 32 g/dL (32-36); MEAN CORPUSCULAR VOLUME 94 fL (80-99); MEAN PLATELET VOLUME 9.5 fL (9.0-12.2); MONOCYTES # (AUTO) 0.6 10^3/uL (0.0-1.0); MONOCYTES % (AUTO) 6 % (0-12); NEUTROPHILS # (AUTO) 8.2 10^3/uL (1.8-7.8); NEUTROPHILS % (AUTO) 71 % (42-75); PLATELET COUNT 270 10^3/uL (130-400); WHITE BLOOD COUNT 11.5 10^3/uL (4.3-11.0)
--- NOTE | 2022-09-23 23:39 | ED Chest Pain ---
General Stated Complaint: CHEST PAIN Source: patient History of Present Illness Date Seen by Provider: Sep 23, 2022 Time Seen by Provider: 23:23 Initial Comments 41-year-old female presenting with complaints of central chest pain that radiates to her her back between her shoulder blades. This started approximately an hour and half prior to arrival. She states that she was sit ting playing [employer] and [employer] when the pain came on. She has had GERD and heartburn symptoms in the past but states this feels different. She denies any known cardiac problems. She did not try taking anything for the pain. She states that the pain was coming in waves and at times it would improve down to a 2 out of 10 other times it would spike up to 7 out of 10. Feels like squeezing pain or pressure. She states that nothing makes the pain better or worse. Walking and moving as well as deep breaths did not make her pain better or worse. She denies any recent fall or trauma. Timing/Duration: 1-3 hours Severity/Quality: moderate (7 out of 10 at its worst and down to 2 out of 10 on arrival to ED), pressure (squeezing sensation) Location: substernal Radiation: back Activities at Onset: other (sitting playing a [employer] game) Prior CP/Workup: no prior cardiac workup ASA po [address] MAGISTRATE: No NTG SL [address] MAGISTRATE: No Associated Symptoms: No abdominal pain, No diaphoresis, No dizziness, No edema, No fatigue, No fever/chills, No headache, No heartburn, No nausea/vomiting, No rash, No shortness of breath, No swelling/lump in chest, No syncope, No weakness Allergies and Home Medications Allergies Coded Allergies: Penicillins (Verified Allergy, Unknown, 09/08/19) aspirin (Verified Allergy, Unknown, 09/08/19) bismuth subsalicylate (Verified Allergy, Unknown, 09/08/19) codeine (Verified Allergy, Unknown, 09/08/19) tramadol (Verified Allergy, Unknown, 09/08/19) Patient Home Medication List Home Medication List Reviewed: Yes Cyclobenzaprine HCl (Cyclobenzaprine HCl) 10 Mg Tablet, 10 MG PO Q8H PRN for SPASMS Prescribed by: ANN GONCALVES on 12/03/192015 Fluconazole (Diflucan) 100 Mg Tablet, 100 MG PO DAILY PRN Prescribed by: VITALY LOMELI on 02/29/20 174 Meclizine HCl (Meclizine HCl) 25 Mg Tablet, 25 MG PO Q8H Prescribed by: MALCOM VILLARREAL on 12/20/20 174 Medroxyprogesterone Acetate (Provera) 10 Mg Tablet, 10 MG PO DAILY Prescribed by: PHAN VERDIN on 09/08/19 2248 Naproxen (Naprosyn) 500 Mg Tablet, 500 MG PO BID Prescribed by: ANN GONCALVES on 12/03/192015 Ondansetron (Ondansetron Odt) 4 Mg Tab.rapdis, 4 MG PO Q6H PRN for NAUSEA/VOMITING Prescribed by: ANN GONCALVES on 11/19/201930 Pantoprazole Sodium (Pantoprazole Sodium) 40 Mg Tablet.dr, 40 MG PO DAILY Prescribed by: VITALY LOMELI on 09/24/22 0131 Promethazine HCl (Promethazine Tablet) 25 Mg Tablet, 25 MG PO Q6H PRN for NAUSEA/VOMITING-2ND LINE Prescribed by: LIBERTY CAMPOS on 09/14/212156 Sulfamethoxazole/Trimethoprim (Bactrim Ds Tablet) 1 Each Tablet, 1 EACH PO BID Prescribed by: VITALY LOMELI on 02/29/20 174 Review of Systems Review of Systems Constitutional: No chills, No fever EENTM: No Symptoms Reported Respiratory: See HPI Cardiovascular: See HPI Gastrointestinal: See HPI; Denies Nausea, Denies Vomiting Genitourinary: No Symptoms Reported Musculoskeletal: no symptoms reported Skin: No rash Psychiatric/Neurological: No Symptoms Reported Past Vwbgrsa-Csnukn-Ahgqar Hx Patient Social History Tobacco Use?: Yes Tobacco type used: Cigarettes Seasonal Allergies Seasonal Allergies: No Past Medical History Surgery/Hospitalization HX: Hypothyroid Surgeries: Yes Section, Tubal Ligation Respiratory: No Cardiac: No Neurological: No 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 oz. kg; 60.00 BMI Method: General Appearance: No Apparent Distress, Obese Neck: Full Range of Motion, Normal Inspection, Non Tender, Supple Respiratory: Chest Non Tender, Lungs Clear, Normal Breath Sounds, No Accessory Muscle Use, No Respiratory Distress Cardiovascular: Regular Rate, Rhythm, Normal Peripheral Pulses Gastrointestinal: Normal Bowel Sounds, No Pulsatile Mass, Non Tender, Soft Rectal: Deferred Extremity: Normal Capillary Refill, Normal Inspection, No Calf Tenderness, No Pedal Edema Neurologic/Psychiatric: Alert, Oriented x3, grease packer II-XII Norm as Tested Skin: Warm/Dry, Erythema (areas of sunburn to upper arms and upper back/neck) Progress/Results/Core Measures Results/Orders Lab Results Laboratory Tests Test 09/23/22 23:25 09/24/22 00:57 Range/Units White Blood Count 11.5 H 4.3-11.0 10^3/uL Red Blood Count 4.74 3.80-5.11 10^6/uL Hemoglobin 14.1 11.5-16.0 g/dL Hematocrit 44 35-52 % Mean Corpuscular Volume 94 80-99 fL Mean Corpuscular Hemoglobin 30 25-34 pg Mean Corpuscular Hemoglobin Concent 32 32-36 g/dL Red Cell Distribution Width 14.5 10.0-14.5 % Platelet Count 270 130-400 10^3/uL Mean Platelet Volume 9.5 9.0-12.2 fL Immature Granulocyte % (Auto) 1 % Neutrophils (%) (Auto) 71 42-75 % Lymphocytes (%) (Auto) 22 12-44 % Monocytes (%) (Auto) 6 0-12 % Eosinophils (%) (Auto) 2 0-10 % Basophils (%) (Auto) 0 0-10 % Neutrophils # (Auto) 8.2 H 1.8-7.8 10^3/uL Lymphocytes # (Auto) 2.5 1.0-4.0 10^3/uL Monocytes # (Auto) 0.6 0.0-1.0 10^3/uL Eosinophils # (Auto) 0.2 0.0-0.3 10^3/uL Basophils # (Auto) 0.0 0.0-0.1 10^3/uL Immature Granulocyte # (Auto) 0.1 0.0-0.1 10^3/uL Prothrombin Time 12.3 12.2-14.7 SEC INR Comment 0.9 0.8-1.4 Activated Partial Thromboplast Time 22 L 24-35 SEC Sodium Level 141 135-145 MMOL/L Potassium Level 3.9 3.6-5.0 MMOL/L Chloride Level 104 98-107 MMOL/L Carbon Dioxide Level 27 21-32 MMOL/L Anion Gap 10 5-14 MMOL/L Blood Urea Nitrogen 18 7-18 MG/DL Creatinine 0.81 0.60-1.30 MG/DL Estimat Glomerular Filtration Rate 95 BUN/Creatinine Ratio 22 Glucose Level 107 H 70-105 MG/DL Calcium Level 9.6 8.5-10.1 MG/DL Corrected Calcium 9.8 8.5-10.1 MG/DL Magnesium Level 2.0 1.6-2.4 MG/DL Total Bilirubin < 0.2 0.1-1.0 MG/DL Aspartate Amino Transf (AST/SGOT) 14 5-34 U/L Alanine Aminotransferase (ALT/SGPT) 17 0-55 U/L Alkaline Phosphatase 118 40-136 U/L Troponin I < 0.30 < 0.30 <0.30 NG/ML Pro-B-Type Natriuretic Peptide < 36.0 <125.0 PG/ML Total Protein 7.7 6.4-8.2 GM/DL Albumin 3.7 3.2-4.5 GM/DL My Orders Orders - VITALY LOMELI MD Cbc With Automated Diff (09/23/22 23:26) Magnesium (09/23/22:) Ekg Tracing (09/23/22:) Comprehensive Metabolic Panel (09/23/22:) Protime With Inr (09/23/22:) Partial Thromboplastin Time (09/23/22:) O2 (09/23/22:) Monitor-Rhythm Ecg Trace Only (09/23/22:) Ed Iv/Invasive Line Start (09/23/22:26) Troponin I Fs (09/23/22 23:26) Probnp Fs (09/23/22:26) Pantoprazole Injection (Protonix Injecti (09/23/22 23:35) Ketorolac Injection (Toradol Injection) (09/23/22 23:35) Chest 1 View Ap/Pa Only (09/23/22 23:35) Ondansetron Injection (Zofran Injectio (09/24/22 00:18) Troponin I Fs (09/24/22 01:00) Vital Signs/I&O 09/23/22 09/24/22 23:23 01:41 Temp 35.8 Pulse 80 71 Resp 20 18 B/P (MAP) 134/78 (96) 122/64 Pulse Ox 98 95 O2 Delivery Room Air Room Air Progress Progress Note #1: Progress Note Potential life-threatening diagnosis of myocardial infarction, aortic dissection, pulmonary embolism, esophageal spasms, GERD, pancreatitis, cholelithiasis, cholecystitis. Placed patient on cardiac nurse monitoring. Her initial heart rate and rhythm appears to be a sinus rhythm with a heart rate in the 70s. Obtain electrocardiogram looking for signs of ischemia and her EKG was showing a sinus rhythm without ST elevation and a heart rate in the 70s. She had no prior tracing for comparison. Obtain peripheral IV access to send labs for complete blood count, comprehensive metabolic profile, coagulation factors, troponin, magnesium, proBNP. 1 view chest x-ray looking for signs of pneumonia or infiltrate or widened mediastinum. Administer Toradol 15 mg IV for pain, pantoprazole 40 mg IV for possible gastritis. She is allergic to aspirin so no aspirin was administered. Progress Note #2: Progress Note 0015 complete blood count shows white blood cell count is upper limit of normal at 11.5. She is not anemic with a hemoglobin of 14.1. Her comprehensive metabolic profile did not show any acute significant abnormality. Her initial troponin was less than 0.3. On my personal review and interpretation of her 1 view chest x-ray she had no acute infiltrate or widened mediastinum or effusion. Counseled patient on findings and states her pain was down to a 2 out of 10 all the time now. She refused any further pain meds. She did request Zofran for nausea. Will recheck troponin at 0100 to see if she was having any change in the troponin value. Progress Note #3: Time: 01:27 Progress Note Repeat troponin came back still less than 0.3. Patient was continuing to feel improved pain. She denied having any new symptoms. Advised her of the continued negative troponin. Will try treating patient for GERD and esophageal spasm. Encouraged follow-up with the clinic. Check back with clinic for continued evaluation. Initial ECG Impression Date: Sep 23, 2022 Initial ECG Impression Time: 23:29 Initial ECG Rate: 79 Initial ECG Rhythm: Normal Sinus Initial ECG Comparisson: No Previous ECG Available Comment On my personal interpretation and review of the electrocardiogram she has a sinus rhythm with a heart rate of 79 bpm. VT interval [address] elevation. QT interval 372 ms with a QTc interval 407 ms. She has no prior tracings available for comparison. Diagnostic Imaging Diagonstic Imaging: Xray Plain Films/CT/US/NM/MRI: chest Comments On my personal interpretation and review of the 1 view chest x-ray she has no acute infiltrate, effusion, widened mediastinum. Reviewed: Reviewed by Me Departure Impression Primary Impression: Atypical chest pain Disposition: HOME, SELF-CARE Condition: Stable Departure-Patient Inst. Decision time for Depature: 01:28 Referrals: LEO JOSE APRN (PCP) Primary Care Physician [facility] (Family) Primary Care Physician Patient Instructions: Chest Pain, Adult ED, Ulcer and Gastritis Diet Add. Discharge Instructions: Stay well-hydrated and drink plenty of fluids. Take medication to help with acid reflux and esophageal irritation. Check back with clinic for continued evaluation and work-up for atypical chest pain. Your primary care provider may refer you to cardiology for a stress test. They may also try and set you up for an endoscopy to look at the lining of your esophagus and stomach. Follow a bland low-fat diet to try and help from a reflux and peptic ulcer disease standpoint. Scripts Pantoprazole Sodium (Pantoprazole Sodium) 40 Mg Tablet. 40 MG PO DAILY for Gastritis for 30 Days, #30 TAB 0 Refills Prov: VITALY LOMELI MD 09/24/22 VITALY LOMELI MD Sep 23, 2022 23:39
[2022-09-23 23:48] LABS: INR 0.9 (0.8-1.4); PROTHROMBIN TIME PATIENT 12.3 SEC (12.2-14.7)
[2022-09-24 00:05] LABS: ALANINE AMINOTRANSFERASE 17 U/L (0-55); ALBUMIN 3.7 GM/DL (3.2-4.5); ALKALINE PHOSPHATASE 118 U/L (40-136); BILIRUBIN,TOTAL < 0.2 MG/DL (0.1-1.0); BUN/CREATININE RATIO 22; CALCIUM 9.6 MG/DL (8.5-10.1); CARBON DIOXIDE 27 MMOL/L (21-32); CHLORIDE 104 MMOL/L (98-107); CREATININE SERUM 0.81 MG/DL (0.60-1.30); GFR ESTIMATED 95; GLUCOSE 107 MG/DL (70-105); POTASSIUM 3.9 MMOL/L (3.6-5.0); SODIUM 141 MMOL/L (135-145); TOTAL PROTEIN 7.7 GM/DL (6.4-8.2)
[2022-09-24] MEDS ORDERED: ONDANSETRON 4 MG/2 ML (SDV) Z0FRAN IVP STA (00:18)
[2022-09-24] MEDS ORDERED: PANT40TA52 PO (01:31)
[2022-09-24 01:41] VITALS: BP 122/64
--- NOTE | 2022-09-24 06:35 | Diagnostic Imaging Report ---
EXAMINATION: Chest 1 view HISTORY: chest pain radiating to back since 2129 COMPARISON: None available. FINDINGS: Heart size and pulmonary vasculature are normal. The lungs are clear without consolidation, pleural effusion, or pneumothorax. The osseous structures are intact. IMPRESSION: 1. No acute radiographic abnormality in the chest. Dictated by: Dictated on workstation # [id number]
== END 2022-09-24 01:41 | disposition home or self-care (01) ==
LOC: EDUNIT# 23:19 → ER FS 23:22
DX: R07.2 Precordial pain (principal); L55.0 Sunburn of first degree; E66.9 Obesity, unspecified; F17.210 Nicotine dependence, cigarettes, uncomplicated; Z68.44 Body mass index [BMI] 60.0-69.9, adult; Z28.310 Unvaccinated for COVID-19
CPT/HCPCS: 36415; 71045; 80053; 83735; 83880; 84484; 85025; 85610; 85730; 93005; 93041